=== PATIENT | male | born 1970 | race Two or more races ===

== ENCOUNTER 2024-07-29 00:20 | Inpatient (IN) | payer OTHER ==
[~2024-07-29] VITALS: Ht 170.2 cm; Wt 152.0 kg
--- NOTE | 2024-07-29 00:37 | ED.PDOC ---
General HPI Comments 54-year-old male who came to ER for flank pains. Patient denies any medical problems. States for the past week he has intermittent episodes of left flank pains, back pain, and suprapubic pain associated with on and off fever, nausea and dysuria. The patient was seen by his primary care provider, and started on antibiotics. However worsening of left flank pains the past 2 days prompted patient to come to the ER. Chief Complaint: Flank pain Time Seen by MD: 00:36 Reviewed notes: Nurses Notes Information Source: Patient Mode of Arrival: Ambulatory Severity: Moderate Inability to void: Mild Timing: Days Duration: Intermittent Has not urinated for: Minutes Prehospital treatment: None Onset: Spontaneous Symptoms: Dysuria History of: UTI Location: (L)Flank associated signs and symptoms: Fever, Abdominal Pain, Nausea, Flank Pain, Back Pain Past Medical History PAST MEDICAL HISTORY: Denies Surgical History: Denies all surgeries Family History Family History: Reviewed,noncontributory to illness Social History Smoker: Non-Smoker Alcohol: Denies ETOH Use Drugs: Denies Drug Use Lives In: Home Constitutional: reports: fever; denies: chills, diaphoresis, fatigue, malaise, sweats, weakness, others EENTM: denies: blurred vision, double vision, ear bleeding, ear discharge, ear drainage, ear pain, ear ringing, eye pain, eye redness, hearing loss, mouth pain, mouth swelling, nasal discharge, nose bleeding, nose congestion, nose pain, photophobia, tearing, throat pain, throat swelling, voice changes, others Respiratory: denies: cough, hemoptysis, orthopnea, SOB at rest, shortness of breath, SOB with excertion, stridor, wheezing, others Cardiovascular: denies: chest pain, dizzy spells, diaphoresis, Dyspnea on exertion, edema, irregular heart beat, left arm pain, lightheadedness, palpitations, PND, syncope, others Gastrointestinal: reports: abdominal pain; denies: abdomen distended, blood streaked bowels, constipated, diarrhea, dysphagia, difficulty swallowing, hematemesis, melena, nausea, poor appetite, poor fluid intake, rectal bleeding, rectal pain, vomiting, others Genitourinary: reports: burning, dysuria, flank pain; denies: frequency, hematuria, incontinence, penile discharge, penile sore, pain, testicle pain, testicle swelling, urgency, others Neurological: denies: dizziness, fainting, headache, left sided numbness, left sided weakness, numbness, paresthesia, pre-existing deficit, right sided numbness, right sided weakness, seizure, speech problems, tingling, tremors, weakness, others Musculoskeletal: reports: back pain; denies: gout, joint pain, joint swelling, muscle pain, muscle stiffness, neck pain, others Integumetry: denies: bruises, change in color, change in hair/nails, dryness, laceration, lesions, lumps, rash, wounds, others Allergic/Immunocompromised: denies: Difficulty Healing, Frequent Infections, Hives, Itching, others Hematologic/Lymphatic: denies: anemia, blood clots, easy bleeding, easy bruising, swollen glands, others Endocrine: denies: excessive hunger, excessive sweating, excessive thirst, excessive urination, flushing, intolerance to cold, intolerance to heat, unexplained weight gain, unexplained weight loss, others Psychiatric: denies: anxiety, bipolar disorder, depression, hopeless, panic disorder, schizophrenia, sleepless, suicidal, others Physical Exam General Appearance: No Apparent Distress, Normal HEENT: Normal ENT Inspection, Pharynx Normal, TMs Normal Neck: Full Range of Motion, Non-Tender, Normal, Normal Inspection Respiratory: Chest Non-Tender, Lungs Clear, No Accessory Muscle Use, No Respiratory Distress, Normal Breath Sounds Cardiovascular: No Edema, No JVD, No Murmur, No Gallop, Normal Peripheral Pulses, Regular Rate/Rhythm Breast Exam: Deferred Gastrointestinal: No Organomegaly, Non Tender, No Pulsatile Mass, Normal Bowel Sounds, Soft Genitalia: Deferred Pelvic: Deferred Rectal: Deferred Extremities: No calf tenderness, Normal capillary refill, Normal inspection, Normal range of motion, Non-tender, No pedal edema Musculoskeletal : Apperance: Normal Neurologic: Alert, supervisor contact lens II-XII nml as Tested, No Motor Deficits, Normal Affect, Normal Mood, No Sensory Deficits Cerebellar Function: Normal Reflexes: Normal Skin: Dry, Normal Color, Warm Lymphatic: No Adenopathy Was a procedure done? Was a procedure done?: No Differential Diagnosis Kidney stone (Female): N/A Kidney stone (Male): Pyelonephritis, Renal failure, Strain, Urinary obstruction, Urolithiasis, Urinary tract infection Urinary Problem (Male): Urethritis, Urinary Retention, Urolithiasis, UTI X-Ray, Labs, Meds, VS Vital Signs Date Time Temp Pulse Resp B/P (MAP) Pulse Ox O2 Delivery O2 Flow Rate FiO2 07/29/24 01:10 Room Air* 0 21 07/29/24 01:10 97.7 118 20 123/77 (92) 95 97.7 07/29/24 00:34 99.5 116 20 108/70 (83) 95 Lab Test 07/29/24 01:35 07/29/24 01:12 07/29/24 00:42 Range/Units White Blood Count 21.8 H 4.4-10.8 10^3/uL Red Blood Count 5.28 4.5-5.90 10^6/uL Hemoglobin 16.5 13.5-17.5 g/dL Hematocrit 48.3 41.0-53.0 % Mean Corpuscular Volume 91.5 80.0-100.0 fL Mean Corpuscular Hemoglobin 31.2 28.0-32.0 pg Mean Corpuscular Hemoglobin Concent 34.1 32.0-36.0 g/dL Red Cell Distribution Width 13.6 11.8-14.3 % Platelet Count 154 140-450 10^3/uL Mean Platelet Volume 9.2 6.9-10.8 fL Neutrophils (%) (Auto) 88.6 H 37.0-80.0 % Lymphocytes (%) (Auto) 3.7 L 10.0-50.0 % Monocytes (%) (Auto) 7.5 0.0-12.0 % Eosinophils (%) (Auto) 0.0 0.0-7.0 % Basophils (%) (Auto) 0.2 0.0-2.0 % Neutrophils # (Auto) 19.3 H 1.6-8.6 10 ^3/uL Lymphocytes # (Auto) 0.8 0.4-5.4 10 ^3/uL Monocytes # (Auto) 1.6 H 0-1.3 10 ^3/uL Eosinophils # (Auto) 0 0-0.8 10 ^3/uL Basophils # (Auto) 0.1 0-0.2 10 ^3/uL Nucleated Red Blood Cells 0.1 % Urine Color Light-orange Yellow Urine Clarity Clear Clear Urine pH 6.0 5.0-9.0 Urine Specific [place] 1.014 1.001-1.035 Urine Protein 1+ H Negative Urine Ketones Negative Negative Urine Blood 1+ H Negative /uL Urine Nitrite Negative Negative Urine Bilirubin Negative Negative Urine Urobilinogen Normal Negative mg/dL Urine Leukocyte Esterase 1+ Negative /uL Urine RBC 9 0 - 3 /hpf Urine WBC 24 0 - 3 /hpf Urine Squamous Epithelial Cells Few <5 /hpf Urine Transitional Epithelial Cells Few <2 /hpf Urine Bacteria Few H None Seen /hpf Urine Mucus Few None Seen Urine Glucose Normal Normal mg/dL Sodium Level 136 136-145 mmol/L Potassium Level 3.6 3.5-5.1 mmol/L Chloride Level 103 98-107 mmol/L Carbon Dioxide Level 25 20-31 mmol/L Anion Gap 8 5-15 Blood Urea Nitrogen 8 L 9-23 mg/dL Creatinine 0.84 0.700-1.30 mg/dL Glomerular Filtration Rate Calc 104 >90 mL/min BUN/Creatinine Ratio 9.5 L 10.0-20.0 Serum Glucose 114 H 74-106 mg/dL Calcium Level 9.2 8.7-10.4 mg/dL Total Bilirubin 3.2 H 0.2-1.0 mg/dL Aspartate Amino Transferase (AST) 27 13-40 U/L Alanine Aminotransferase (ALT) 44 H 7-40 U/L Alkaline Phosphatase 67 46-116 U/L Total Protein 7.2 5.7-8.2 g/dL Albumin 4.2 3.2-4.8 g/dL Lipase 26 12-53 U/L Current Medications Medications (Trade) Dose Ordered Sig/Liliam Route Start Time Stop Time Status Last Admin Acetaminophen/ Hydrocodone Bitart ([place] 10/325MG Tab) 1 tab ONCE ONCE PO 07/29/24 00:45 07/29/24 00:46 DC 07/29/24 01:08 Time of 1ST Reevaluation: 00:34 Reevaluation 1ST: Unchanged Time of 2ND Reevaluation: 02:26 Reevaluation 2ND: Unchanged (CT and labs suggest ureteral stone with obstruction and UTI, will admit for IV antibiotics and Urology consult) Patient Education/Counseling: Diagnosis, Treatment Family Education/Counseling: No Family Present Departure 1 Departure Time of Disposition: 02:26 Impression: Primary Impression: Ureteral stone with hydronephrosis Additional Impression: UTI (urinary tract infection) Disposition: 09 ADMITTED INPATIENT Admit to: Med Surg Condition: Guarded Critical Care Note Critical Care Time?: No Stability Stability form required: No Heart Score Heart Score: Heart Score Response (Comments) Value History N/A 0 EKG N/A 0 Age N/A 0 Risk Factors N/A 0 Troponin N/A 0 Total 0 I personally scribed for LEXY HARRIS MD ([email or web address]) on 07/29/24 at 00:37. Electronically submitted by Emilio Melendez ([email or web address]). LEXY HARRIS MD Jul 29, 2024 00:37
[2024-07-29 01:08] LABS: Alanine Aminotransferase 44 U/L (7-40); Alkaline Phosphatase 67 U/L (46-116)
[2024-07-29] MEDS: HYDROcodone-ACET 10/325MG TAB PO ONE (01:08)
[2024-07-29 01:09] LABS: Albumin 4.2 g/dL (3.2-4.8); Anion Gap 8 (5-15); Aspartate Aminotransferase 27 U/L (13-40); BUN/Creatinine Ratio 9.5 (10.0-20.0); Bilirubin, Total 3.2 mg/dL (0.2-1.0); Blood Urea Nitrogen 8 mg/dL (9-23); Calcium 9.2 mg/dL (8.7-10.4); Carbon Dioxide 25 mmol/L (20-31); Chloride 103 mmol/L (98-107); Glucose 114 mg/dL (74-106); Lipase 26 U/L (12-53); Potassium 3.6 mmol/L (3.5-5.1); Sodium 136 mmol/L (136-145); Total Protein 7.2 g/dL (5.7-8.2)
[2024-07-29 01:39] LABS: Urine Bacteria FEW /hpf (None Seen); Urine Blood 1+ /uL (Negative); Urine Clarity Clear (Clear); Urine Color Light-Orange (Yellow); Urine Mucus FEW (None Seen); Urine Protein, UAD 1+ (Negative); Urine Specific Gravity 1.014 (1.001-1.035); Urine Urobilinogen Normal (Negative); Urine WBC 24 /hpf (0 - 3)
[2024-07-29 01:44] LABS: Basophils # (auto) 0.1 10 ^3/uL (0-0.2); Basophils % (auto) 0.2 % (0.0-2.0); Eosinophils # (auto) 0 10 ^3/uL (0-0.8); Hematocrit 48.3 % (41.0-53.0); Hemoglobin 16.5 g/dL (13.5-17.5); Lymphocytes # (auto) 0.8 10 ^3/uL (0.4-5.4); Lymphocytes % (auto) 3.7 % (10.0-50.0); Mean Corpuscular Hemoglobin 31.2 pg (28.0-32.0); Mean Corpuscular Hgb Conc. 34.1 g/dL (32.0-36.0); Mean Corpuscular Volume 91.5 fL (80.0-100.0); Monocytes # (auto) 1.6 10 ^3/uL (0-1.3); Monocytes % (auto) 7.5 % (0.0-12.0); Neutrophils # (auto) 19.3 10 ^3/uL (1.6-8.6); Neutrophils % (auto) 88.6 % (37.0-80.0); Nucleated Red Blood Cells % 0.1 %; Platelet Count (auto) 154 10^3/uL (140-450); Red Blood Cells 5.28 10^6/uL (4.5-5.90); Red Cell Distribution Width 13.6 % (11.8-14.3); White Blood Cell 21.8 10^3/uL (4.4-10.8)
--- NOTE | 2024-07-29 01:57 | DVH ---
Exam: CT CT AB PEL WO CON-NO ORAL OR IV History: left flank pain Comparison Study: None available at time of dictation. Technique: Multidetector spiral CT of the abdomen was performed from lung bases to pubic symphysis. Imaging was performed without IV contrast. Axial, coronal and sagittal multiplanar reformats were ob tained from the axial data set by the technologist. Radiation Dose : 1. Abdomen/Pelvis: CTDIvol 26 mGy, DLP 1924 mGy*cm. Findings: Evaluation of solid organs is limited due to lack of intravenous contrast use. Lung Bases: No acute or significant lung base finding. Normal heart size. No pleural or pericardial effusion. Liver: The liver is normal in size. No focal lesions. Gallbladder and Biliary Tree: Unremarkable Spleen: Unremarkable Pancreas: The pancreas is grossly normal in appearance. Adrenal Glands: Unremarkable Kidneys: Mild left perinephric fat stranding with a 4 mm stone in the mid left ureter. Bladder: Nondistended urinary bladder demonstrates diffuse wall thickening. Bowel: The stomach is grossly normal in appearance. Small bowel and colon are normal in caliber and d istribution. Normal appendix is visualized in the right lower quadrant without findings of appendici tis. Ascites: Absent Lymphadenopathy: No mesenteric, retroperitoneal or periportal lymphadenopathy. Abdominal Wall and Mesentery: Unremarkable. Vasculature: The visualized abdominal aorta is normal in size and caliber. Evaluation of abdominal a nd pelvic vessels is limited due to lack of intravenous contrast. Pelvic Organs: Unremarkable Musculoskeletal: No aggressive focal bony lesions, acute fractures or dislocation. IMPRESSION: Mild left perinephric fat stranding with a 4 mm stone in the mid left ureter. Findings are concernin g for possible developing infectious process of the left kidney suggest pyelonephritis. Nondistended urinary bladder demonstrates diffuse wall thickening. Correlate for acute cystitis.
[2024-07-29] MEDS: cefTRIAXone 2GM/50ML D5W 50 ML IV ONE (02:59)
[2024-07-29] MEDS: SODIUM CHLORIDE 0.9% 1,000 ML IVB ONE (02:59)
[2024-07-29 04:30] VITALS: PULSE 96; O2SAT 95
[2024-07-29] MEDS: SODIUM CHLORIDE 0.9% 1,000 ML IV ONE (06:15)
[2024-07-29] MEDS ORDERED: MAALOX PLUS or MAALOX 30 ML PO PRN (11:00)
[2024-07-29] MEDS ORDERED: ONDANSETRON HCL 4 MG/2 ML VIAL IV PRN (11:00)
[2024-07-29] MEDS ORDERED: TEMAZEPAM 15 MG CAP PO PRN (11:00)
[2024-07-29] MEDS ORDERED: DOCUSATE SOD 100 MG CAP PO PRN (11:00)
[2024-07-29] MEDS ORDERED: HYDROcodone-ACET 5/325MG TAB PO PRN (11:00)
[2024-07-29] MEDS ORDERED: DEXTROSE (50%) 50ML SYRG IV PRN (11:00)
[2024-07-29] MEDS ORDERED: LORazepam 0.5 MG TAB PO PRN (11:00)
[2024-07-29] MEDS ORDERED: MORPHINE SULFATE INJ 2 MG/ml SYRG IV PRN (11:00)
--- NOTE | 2024-07-29 11:36 | DVHHP2 ---
History of Present Illness Reason for Visit: flank pain History of Present Illness %4 yo with flank pain dysuria and elevated white count evaluated in the ed for acute pain shown to have stones and acute signs of infection requiring inpatient treatment and management Cardiovascular: HTN Renal/: Acute renal failure Endocrine: Diabetes Review of Systems Constitutional: Yes: Fever; No: Chills, Sweats, Weakness, Malaise, Other Eyes: No: Pain, Vision change, Conjunctivae inflammation, Eyelid inflammation, Other, Redness ENT: No: Ear pain, Ear discharge, Nose pain, Nose discharge, Nose congestion, Mouth pain, Mouth swelling, Throat pain, Throat swelling, Other Respiratory: No: Cough, Dry, Shortness of breath, SOB with excertion, Wheezing, Hemoptysis, Pleuritic Pain, Sputum, Wheezing, Other Cardiovascular: No: Chest Pain, Palpitations, Orthopnea, Paroxysmal Noc. Dyspnea, Edema, Lt Headedness, Other Gastrointestinal: Nausea, Abdominal Pain; No: Vomiting, Diarrhea, Constipation, Melena, Hematochezia, Other Genitourinary: Dysuria, Frequency; No Incontinence, No Hematuria, No Retention, No Other Musculoskeletal: No: other, neck pain, shoulder pain, arm pain, back pain, hand pain, leg pain, foot pain Skin: No: Rash, Lesions, Jaundice, Bruising, Other Neurological: Weakness; No: Numbness, Incoordination, Change in speech, Confusion, Seizures, Other Exam Vital Signs Vital Signs Date Time Temp Pulse Resp B/P (MAP) Pulse Ox O2 Delivery O2 Flow Rate FiO2 07/29/24 10:51 100.0 106 14 111/66 (81) 94 100.0 07/29/24 08:24 Nasal Cannula* 2 28 General Appearance: Alert, Oriented X3, moderate distress HEENT: Atraumatic, PERRLA Respiratory: Clear to auscultation, Normal air movement Cardiovascular: Regular rate, Normal S1, Normal S2 Abdominal: Normal bowel sounds, Soft, No tenderness Extremities: No clubbing, No cyanosis Skin: No rashes, No breakdown Neuro: Normal gait, Normal speech Psych/Mental Status: Mood NL Labs/Xrays Labs Test 07/29/24 02:40 07/29/24 01:35 07/29/24 01:12 07/29/24 00:42 Range/Units Lactic Acid Level 1.3 0.4-2.0 mmol/L White Blood Count 21.8 H 4.4-10.8 10^3/uL Red Blood Count 5.28 4.5-5.90 10^6/uL Hemoglobin 16.5 13.5-17.5 g/dL Hematocrit 48.3 41.0-53.0 % Mean Corpuscular Volume 91.5 80.0-100.0 fL Mean Corpuscular Hemoglobin 31.2 28.0-32.0 pg Mean Corpuscular Hemoglobin Concent 34.1 32.0-36.0 g/dL Red Cell Distribution Width 13.6 11.8-14.3 % Platelet Count 154 140-450 10^3/uL Mean Platelet Volume 9.2 6.9-10.8 fL Neutrophils (%) (Auto) 88.6 H 37.0-80.0 % Lymphocytes (%) (Auto) 3.7 L 10.0-50.0 % Monocytes (%) (Auto) 7.5 0.0-12.0 % Eosinophils (%) (Auto) 0.0 0.0-7.0 % Basophils (%) (Auto) 0.2 0.0-2.0 % Neutrophils # (Auto) 19.3 H 1.6-8.6 10 ^3/uL Lymphocytes # (Auto) 0.8 0.4-5.4 10 ^3/uL Monocytes # (Auto) 1.6 H 0-1.3 10 ^3/uL Eosinophils # (Auto) 0 0-0.8 10 ^3/uL Basophils # (Auto) 0.1 0-0.2 10 ^3/uL Nucleated Red Blood Cells 0.1 % Urine Color Light-orange Yellow Urine Clarity Clear Clear Urine pH 6.0 5.0-9.0 Urine Specific [place] 1.014 1.001-1.035 Urine Protein 1+ H Negative Urine Ketones Negative Negative Urine Blood 1+ H Negative /uL Urine Nitrite Negative Negative Urine Bilirubin Negative Negative Urine Urobilinogen Normal Negative mg/dL Urine Leukocyte Esterase 1+ Negative /uL Urine RBC 9 0 - 3 /hpf Urine WBC 24 0 - 3 /hpf Urine Squamous Epithelial Cells Few <5 /hpf Urine Transitional Epithelial Cells Few <2 /hpf Urine Bacteria Few H None Seen /hpf Urine Mucus Few None Seen Urine Glucose Normal Normal mg/dL Sodium Level 136 136-145 mmol/L Potassium Level 3.6 3.5-5.1 mmol/L Chloride Level 103 98-107 mmol/L Carbon Dioxide Level 25 20-31 mmol/L Anion Gap 8 5-15 Blood Urea Nitrogen 8 L 9-23 mg/dL Creatinine 0.84 0.700-1.30 mg/dL Glomerular Filtration Rate Calc 104 >90 mL/min BUN/Creatinine Ratio 9.5 L 10.0-20.0 Serum Glucose 114 H 74-106 mg/dL Calcium Level 9.2 8.7-10.4 mg/dL Total Bilirubin 3.2 H 0.2-1.0 mg/dL Aspartate Amino Transferase (AST) 27 13-40 U/L Alanine Aminotransferase (ALT) 44 H 7-40 U/L Alkaline Phosphatase 67 46-116 U/L Total Protein 7.2 5.7-8.2 g/dL Albumin 4.2 3.2-4.8 g/dL Lipase 26 12-53 U/L Assessment/Plan Assessment/Plan Admit med/Surg Pylonephritis Nonobstructive Stones 4 mm consult for possible lithotripsy Elevated WBC> 20 acute infection noted IV Hydration IV ABX prn pain management Tamsulosin and Finasteride DM uncontrolled insulin sliding scale inpatient morbidly obese BMI>57 Plan discussed with: Patient My Orders Orders - RAVI NELSON MD Procedure Category Date Status Time Ceftriaxone 1gm/50ml PHA 07/30/24 Logged D5w (Rocephin) 10:00 * Gu Consult CONS 07/29/24 Transmitted 10:56 Sodium Chloride 0.9% PHA 07/29/24 Logged 11:00 Tamsulosin PHA 07/29/24 Logged Hydrochloride (Flomax) 11:00 Finasteride Tablet PHA 07/29/24 Logged (Proscar Tablet) 11:00 Glucose Blood PHA 07/29/24 Logged (Accu-Chek Comfort 12:00 Insulin R (Human) PHA 07/29/24 Logged (Insulin R) 12:00 Dextrose 50% Syringe PHA 07/29/24 Logged 11:00 Admit ADMIT 07/29/24 Transmitted 10:56 Code Status CODE 07/29/24 Transmitted 10:56 Vital Signs TODD 07/29/24 In Process 10:56 Review Orders With TODD 07/29/24 In Process Adm. 10:56 Regular Diet DIET 07/29/24 Transmitted Lunch Lorazepam Tablet PHA 07/29/24 Logged (Ativan Tablet) 11:00 Alum & Mag PHA 07/29/24 Logged Hydrox-Simethicone 11:00 Docusate Sodium PHA 07/29/24 Logged Capsule (Colace 11:00 Acetaminophen Tablet PHA 07/29/24 Logged (Tylenol Tablet) 11:00 Temazepam (Restoril) PHA 07/29/24 Logged 11:00 Notify Md Of Changes TODD 07/29/24 In Process From Base 10:56 Advance Directive TODD 07/29/24 In Process 10:56 Basic Metabolic Panel LAB 07/30/24 Verified 04:00 Complete Blood Count LAB 07/30/24 Verified 04:00 Urine Bacterial EILEEN 07/29/24 In Process Culture 10:56 Patient Condition ORDERS 07/29/24 Transmitted 10:56 Allergies TODD 07/29/24 In Process 10:56 Hydrocodone-Acet PHA 07/29/24 Logged 5/325mg Tab (Early 11:00 Ondansetron Hcl PHA 07/29/24 Logged (Zofran) 11:00 Morphine Sulfate PHA 07/29/24 Logged Injection 11:00 Notify Md Of Changes TODD 07/29/24 In Process From Base 10:56 Oxygen By Nasal RT 07/29/24 Transmitted Cannula 10:56 Problem List: (1) Diabetes mellitus type 2 with complications, uncontrolled (2) Morbid obesity with BMI of 50.0-59.9, adult (3) UTI (urinary tract infection) (4) Ureteral stone with hydronephrosis Date of Service: Jul 29, 2024 Billing Provider: RAVI NELSON MD Common Visit Codes: 69234-[id number] INP/OBS CARE (HIGH) RAVI NELSON MD Jul 29, 2024 11:36
[2024-07-29] MEDS: InsuLIN REG 1unit/0.01ml Soln (100units/ml) SC SCH (12:00)
[2024-07-29] MEDS: TAMSULOSIN HYDROCHLORIDE 0.4 MG CAP PO SCH (12:13)
[2024-07-29] MEDS: ACETAMINOPHEN 325 MG TAB PO PRN (12:13)
[2024-07-29] MEDS: FINASTERIDE 5 MG TAB PO SCH (12:14)
[2024-07-29] MEDS: ACCU-CHEK COMFORT CURVE STRIP VI SCH (12:14)
[2024-07-29] MEDS: SODIUM CHLORIDE 0.9% 1,000 ML IV SCH (12:15)
--- NOTE | 2024-07-29 13:45 | DVHINCON2 ---
Date of service: Jul 29, 2024 Referring Physician Tulio Reason for Consultation ureteral stone, pyelo History of Present Illness History Source: Patient, RN Notes, MD Notes, Old Records Exam Limitations: No limitations HPI 54 yo male with left flank pain and dysuria. He has been having fever as well. CT shows a 4 mm left midureteral stone. minimal hydro. Review of Systems Constitutional: Fever Genitourinary: Dysuria, Frequency, Pain H&P Exam Vital Signs Vital Signs Date Time Temp Pulse Resp B/P (MAP) Pulse Ox O2 Delivery O2 Flow Rate FiO2 07/29/24 12:13 100.0 07/29/24 10:51 106 14 111/66 (81) 94 07/29/24 08:24 Nasal Cannula* 2 28 General Appeara: Well developed, Well nourished, Normal Appearance Neuro/Mental St: Alert, Oriented Appearance: Appropriate appearance, Appropriate insight Eye contact/ Speech: Cooperative, Good eye contact, Normal speech Skin Exam: Normal inspection, Normal color, Warm/dry Labs/Xrays Labs Test 07/29/24 02:40 07/29/24 01:35 07/29/24 01:12 07/29/24 00:42 Range/Units Lactic Acid Level 1.3 0.4-2.0 mmol/L White Blood Count 21.8 H 4.4-10.8 10^3/uL Red Blood Count 5.28 4.5-5.90 10^6/uL Hemoglobin 16.5 13.5-17.5 g/dL Hematocrit 48.3 41.0-53.0 % Mean Corpuscular Volume 91.5 80.0-100.0 fL Mean Corpuscular Hemoglobin 31.2 28.0-32.0 pg Mean Corpuscular Hemoglobin Concent 34.1 32.0-36.0 g/dL Red Cell Distribution Width 13.6 11.8-14.3 % Platelet Count 154 140-450 10^3/uL Mean Platelet Volume 9.2 6.9-10.8 fL Neutrophils (%) (Auto) 88.6 H 37.0-80.0 % Lymphocytes (%) (Auto) 3.7 L 10.0-50.0 % Monocytes (%) (Auto) 7.5 0.0-12.0 % Eosinophils (%) (Auto) 0.0 0.0-7.0 % Basophils (%) (Auto) 0.2 0.0-2.0 % Neutrophils # (Auto) 19.3 H 1.6-8.6 10 ^3/uL Lymphocytes # (Auto) 0.8 0.4-5.4 10 ^3/uL Monocytes # (Auto) 1.6 H 0-1.3 10 ^3/uL Eosinophils # (Auto) 0 0-0.8 10 ^3/uL Basophils # (Auto) 0.1 0-0.2 10 ^3/uL Nucleated Red Blood Cells 0.1 % Urine Color Light-orange Yellow Urine Clarity Clear Clear Urine pH 6.0 5.0-9.0 Urine Specific [place] 1.014 1.001-1.035 Urine Protein 1+ H Negative Urine Ketones Negative Negative Urine Blood 1+ H Negative /uL Urine Nitrite Negative Negative Urine Bilirubin Negative Negative Urine Urobilinogen Normal Negative mg/dL Urine Leukocyte Esterase 1+ Negative /uL Urine RBC 9 0 - 3 /hpf Urine WBC 24 0 - 3 /hpf Urine Squamous Epithelial Cells Few <5 /hpf Urine Transitional Epithelial Cells Few <2 /hpf Urine Bacteria Few H None Seen /hpf Urine Mucus Few None Seen Urine Glucose Normal Normal mg/dL Sodium Level 136 136-145 mmol/L Potassium Level 3.6 3.5-5.1 mmol/L Chloride Level 103 98-107 mmol/L Carbon Dioxide Level 25 20-31 mmol/L Anion Gap 8 5-15 Blood Urea Nitrogen 8 L 9-23 mg/dL Creatinine 0.84 0.700-1.30 mg/dL Glomerular Filtration Rate Calc 104 >90 mL/min BUN/Creatinine Ratio 9.5 L 10.0-20.0 Serum Glucose 114 H 74-106 mg/dL Calcium Level 9.2 8.7-10.4 mg/dL Total Bilirubin 3.2 H 0.2-1.0 mg/dL Aspartate Amino Transferase (AST) 27 13-40 U/L Alanine Aminotransferase (ALT) 44 H 7-40 U/L Alkaline Phosphatase 67 46-116 U/L Total Protein 7.2 5.7-8.2 g/dL Albumin 4.2 3.2-4.8 g/dL Lipase 26 12-53 U/L Assessment/Plan Problem List: (1) UTI (urinary tract infection) (2) Ureteral stone with hydronephrosis Plan expulsive measures aggressive fluids urine culture pain meds prn lithotripsy TBA if fails trial of passage after resolution of UTI if hydro worsens, creatinine worsens or pain is intractable we will ask IR to place nephrostomy tomorrow Plan discussed with: Other DOMINIQUE STEVENS NP Jul 29, 2024 13:45
[2024-07-29 17:00] VITALS: BP 109/62; PULSE 108; RESP 16; TEMP 99.1; O2SAT 92
[2024-07-29 17:49] VITALS: BP 109/62; PULSE 108; RESP 16; TEMP 99.1; O2SAT 92
[2024-07-29] MEDS ORDERED: APIX5TAB PO (18:12)
[2024-07-29] MEDS ORDERED: FERR-7 PO (18:12)
[2024-07-29] MEDS ORDERED: SERT-160 PO (18:12)
[2024-07-29] MEDS ORDERED: OMEP20TA PO (18:12)
[2024-07-29] MEDS ORDERED: OXY20CRT PO (18:12)
[2024-07-29] MEDS ORDERED: PREG50CA PO (18:12)
[2024-07-29] MEDS ORDERED: CETI10TA2 PO (18:12)
[2024-07-29] MEDS ORDERED: TRAZ-228 PO (18:12)
[2024-07-29] MEDS ORDERED: DIGO0.12 PO (18:12)
[2024-07-29] MEDS ORDERED: CARV6.2551 PO (18:12)
[2024-07-29] MEDS ORDERED: ASPI-543 PO (18:12)
[2024-07-29] MEDS ORDERED: BUSP10TA90 PO (18:12)
[2024-07-29] MEDS ORDERED: LISI2.5T47 PO (18:12)
[2024-07-29] MEDS ORDERED: ALPR0.25 PO (18:12)
[2024-07-29] MEDS ORDERED: PROP80TA2 PO (18:12)
[2024-07-29] MEDS ORDERED: FERR1TAB36 PO (18:12)
[2024-07-29] MEDS ORDERED: DOCU-94 PO (18:12)
[2024-07-29] MEDS ORDERED: ATOR20TA PO (18:12)
[2024-07-29] MEDS ORDERED: TIZA4CAP PO (18:12)
[2024-07-29] MEDS ORDERED: MONT-8 OR (18:12)
[2024-07-29] MEDS ORDERED: CHOL20004 PO (18:12)
[2024-07-29 20:00] VITALS: PULSE 112; RESP 17; O2SAT 92
[2024-07-29 21:00] VITALS: BP 99/50; PULSE 112; RESP 17; TEMP 100.6; O2SAT 92
[2024-07-30] VITALS (8 sets, daily range): BP systolic 102–128; BP diastolic 53–80; PULSE 78–104; RESP 16–19; TEMP 97.8–100.6; O2SAT 94–95
[2024-07-30] MEDS: ACETAMINOPHEN 325 MG TAB PO PRN (01:55)
[2024-07-30] MEDS: cefTRIAXone 1GM/50ML D5W 50 ML IV SCH (11:39)
--- NOTE | 2024-07-30 11:42 | DVHPN2 ---
Subjective Patient seems him at bedside. No complaint today. Reviewed: Care Plan, H&P, Labs, Medications, Previous Orders, Radiology Changes from previous H/P or p: No Changes Eyes: No Pain, No Vision change, No Conjunctivae inflammation, No Eyelid inflammation, No Other, No Redness ENT: No Ear pain, No Ear discharge, No Nose pain, No Nose discharge, No Nose congestion, No Mouth pain, No Mouth swelling, No Throat pain, No Throat swelling, No Other Cardiovascular: No Chest Pain, No Palpitations, No Orthopnea, No Paroxysmal Noc. Dyspnea, No Edema, No Lt Headedness, No Other Respiratory: No Cough, No Dry, No Shortness of breath, No SOB with excertion, No Wheezing, No Hemoptysis, No Pleuritic Pain, No Sputum, No Other Gastrointestinal: Nausea; No Vomiting; Abdominal Pain; No Diarrhea, No Constipation, No Melena, No Hematochezia, No Other Genitourinary: Dysuria, Frequency; No Incontinence, No Hematuria, No Retention, No Other Musculoskeletal: No other, No neck pain, No shoulder pain, No arm pain, No back pain, No hand pain, No leg pain, No foot pain Skin: No Rash, No Lesions, No Jaundice, No Bruising, No Other Objective Vitals Vital Signs Date Time Temp Pulse Resp B/P (MAP) Pulse Ox O2 Delivery O2 Flow Rate FiO2 07/30/24 09:24 97.9 93 17 120/75 (90) 95 97.9 07/30/24 08:00 Nasal Cannula* 2 28 Intake/Output Intake and Output 07/30/24 07:00 Intake Total 3730 ml Output Total 250 ml Balance 3480 ml Intake Oral 800 ml IV Total 2930 ml Output Urine Total 250 ml General Appearance: Alert, No acute distress HEENT: Atraumatic, PERRLA, EOMI, Mucous membr. moist/pink Neck: Supple Lungs: Clear to auscultation, Normal air movement Cardiovascular: Regular rate, Normal S1, Normal S2, No murmurs, Gallops, Rubs Abdomen: Normal bowel sounds, Soft, No tenderness Neuro: Cranial nerves 3-12 NL Psych/Mental Status: Mental status NL Medications Current Medications Medications Dose Ordered Sig/Liliam Route Start Time Stop Time Status Last Admin Dose Admin Ceftriaxone Sodium 50 ml @ 100 mls/hr DAILY IV 07/30/24 10:00 Sodium Chloride 1,000 ml @ 100 mls/hr Q10H IV 07/29/24 11:00 07/30/24 06:59 100 MLS/HR Tamsulosin HCl 0.8 mg DAILY PO 07/29/24 11:00 07/29/24 12:13 0.8 MG Finasteride 5 mg DAILY PO 07/29/24 11:00 07/29/24 12:14 5 MG Diagnostic Test (Pha) 1 strip IQ4HR 07/29/24 12:00 07/30/24 08:16 1 STRIP Insulin Human Regular IQ4HR SC 07/29/24 12:00 Dextrose 50 ml UD PRN IV 07/29/24 11:00 Lorazepam 0.5 mg Q6HP PRN PO 07/29/24 11:00 Al Hydrox/Mg Hydrox/Simethicone 30 ml Q6HP PRN PO 07/29/24 11:00 Docusate Sodium 100 mg BIDPRN PRN PO 07/29/24 11:00 Temazepam 15 mg QHSP PRN PO 07/29/24 11:00 Acetaminophen/ Hydrocodone Bitart 1 tab Q4HP PRN PO 07/29/24 11:00 Ondansetron HCl 4 mg Q4HP PRN IV 07/29/24 11:00 Morphine Sulfate 2 mg Q4HPRN PRN IV 07/29/24 11:00 Acetaminophen 650 mg Q6HP PRN PO 07/30/24 02:00 07/30/24 01:55 650 MG Laboratory Results Laboratory Tests 07/29/24 00:42 07/29/24 01:35 Urinalysis Test 07/29/24 01:12 Urine Color Light-orange (Yellow) Urine Clarity Clear (Clear) Urine pH 6.0 (5.0-9.0) Urine Specific [place] 1.014 (1.001-1.035) Urine Protein 1+ (Negative) H Urine Ketones Negative (Negative) Urine Blood 1+ /uL (Negative) H Urine Nitrite Negative (Negative) Urine Bilirubin Negative (Negative) Urine Urobilinogen Normal mg/dL (Negative) Urine Leukocyte Esterase 1+ /uL (Negative) Urine RBC 9 /hpf (0 - 3) Urine WBC 24 /hpf (0 - 3) Urine Squamous Epithelial Cells Few /hpf (<5) Urine Transitional Epithelial Cells Few /hpf (<2) Urine Bacteria Few /hpf (None Seen) H Urine Mucus Few (None Seen) Urine Glucose Normal mg/dL (Normal) Microbiology Microbiology Date/Time Source Procedure Growth Status 07/29/24 03:01 Blood Blood Culture - Preliminary NO GROWTH AFTER 24 HOURS OF INCUBATION. Resulted Labs and/or images reviewed: Labs reviewed by me Assessment/Plan Assessment/Plan Pyelonephritis Obstructive stone 4 mm mid left ureter Diabetes uncontrolled Morbid obesity Plan: Continuing current management. Continuing with IV antibiotic Rocephin. IV fluid. Sliding scale insulin. Waiting for urology to see the patient. Plan discussed with: Patient Date of Service: Jul 30, 2024 Billing Provider: DANN PEARSON MD Common Visit Codes: [id number] INP/OBS CARE(HIGH) DANN PEARSON MD Jul 30, 2024 11:42
[2024-07-31] VITALS (8 sets, daily range): BP systolic 101–122; BP diastolic 53–75; PULSE 66–93; RESP 16–19; TEMP 98–99.7; O2SAT 93–96
[2024-07-31 13:49] LABS: Hematocrit 47.8 % (41.0-53.0); Hemoglobin 16.3 g/dL (13.5-17.5); Mean Corpuscular Hemoglobin 30.9 pg (28.0-32.0); Mean Corpuscular Hgb Conc. 34.1 g/dL (32.0-36.0); Mean Corpuscular Volume 90.5 fL (80.0-100.0); Platelet Count (auto) 95 10^3/uL (140-450); Red Blood Cells 5.29 10^6/uL (4.5-5.90); Red Cell Distribution Width 13.1 % (11.8-14.3); White Blood Cell 12.5 10^3/uL (4.4-10.8)
[2024-07-31 13:59] LABS: Chloride 106 mmol/L (98-107); Potassium 3.5 mmol/L (3.5-5.1); Sodium 139 mmol/L (136-145)
[2024-07-31 14:00] LABS: Anion Gap 8 (5-15); Carbon Dioxide 25 mmol/L (20-31)
[2024-07-31 14:01] LABS: Calcium 8.7 mg/dL (8.7-10.4)
[2024-07-31 14:05] LABS: BUN/Creatinine Ratio 15.1 (10.0-20.0); Band Neutrophils % (manual) 0; Basophils % (manual) 0 (0.0-2.0); Blast Cells 0; Blood Urea Nitrogen 11 mg/dL (9-23); Glucose 116 mg/dL (74-106); Metamyelocytes % 0; Myelocytes % 0; Promyelocytes % 0; Reactive Lymphocytes 0
[2024-07-31 14:07] LABS: Eosinophils % (manual) 3 (0-7); Lymphocytes % (manual) 9 (10.0-50.0); Monocytes % (manual) 7 (0-12)
[2024-07-31 14:09] LABS: Platelet Estimate Decrea
[2024-08-01] VITALS (9 sets, daily range): BP systolic 96–142; BP diastolic 52–86; PULSE 70–89; RESP 16–20; TEMP 98.1–98.7; O2SAT 90–95
--- NOTE | 2024-08-01 13:13 | DVHPN2 ---
Reviewed: Care Plan, H&P, Labs, Medications, Previous Orders, Radiology Changes from previous H/P or p: No Changes Eyes: No Pain, No Vision change, No Conjunctivae inflammation, No Eyelid inflammation, No Other, No Redness ENT: No Ear pain, No Ear discharge, No Nose pain, No Nose discharge, No Nose congestion, No Mouth pain, No Mouth swelling, No Throat pain, No Throat swelling, No Other Cardiovascular: No Chest Pain, No Palpitations, No Orthopnea, No Paroxysmal Noc. Dyspnea, No Edema, No Lt Headedness, No Other Respiratory: No Cough, No Dry, No Shortness of breath, No SOB with excertion, No Wheezing, No Hemoptysis, No Pleuritic Pain, No Sputum, No Other Gastrointestinal: Nausea; No Vomiting; Abdominal Pain; No Diarrhea, No Constipation, No Melena, No Hematochezia, No Other Genitourinary: Dysuria, Frequency; No Incontinence, No Hematuria, No Retention, No Other Musculoskeletal: No other, No neck pain, No shoulder pain, No arm pain, No back pain, No hand pain, No leg pain, No foot pain Skin: No Rash, No Lesions, No Jaundice, No Bruising, No Other Objective Vitals Vital Signs Date Time Temp Pulse Resp B/P (MAP) Pulse Ox O2 Delivery O2 Flow Rate FiO2 08/01/24 09:00 98.2 79 16 96/54 (68) 94 98.2 08/01/24 08:00 Room Air* 0 21 Intake/Output Intake and Output 08/01/24 07:00 Intake Total 4480 ml Output Total 3550 ml Balance 930 ml Intake Oral 2450 ml IV Total 2030 ml Output Urine Total 3550 ml # Bowel Movements 1 Medications Current Medications Medications Dose Ordered Sig/Liliam Route Start Time Stop Time Status Last Admin Dose Admin Ceftriaxone Sodium 50 ml @ 100 mls/hr DAILY IV 07/30/24 10:00 08/01/24 09:22 100 MLS/HR Sodium Chloride 1,000 ml @ 100 mls/hr Q10H IV 07/29/24 11:00 08/01/24 09:25 100 MLS/HR Tamsulosin HCl 0.8 mg DAILY PO 07/29/24 11:00 08/01/24 09:22 0.8 MG Finasteride 5 mg DAILY PO 07/29/24 11:00 08/01/24 09:22 5 MG Diagnostic Test (Pha) 1 strip IQ4HR 07/29/24 12:00 08/01/24 12:00 1 STRIP Insulin Human Regular IQ4HR SC 07/29/24 12:00 Dextrose 50 ml UD PRN IV 07/29/24 11:00 Lorazepam 0.5 mg Q6HP PRN PO 07/29/24 11:00 Al Hydrox/Mg Hydrox/Simethicone 30 ml Q6HP PRN PO 07/29/24 11:00 Docusate Sodium 100 mg BIDPRN PRN PO 07/29/24 11:00 Temazepam 15 mg QHSP PRN PO 07/29/24 11:00 Acetaminophen/ Hydrocodone Bitart 1 tab Q4HP PRN PO 07/29/24 11:00 Ondansetron HCl 4 mg Q4HP PRN IV 07/29/24 11:00 Morphine Sulfate 2 mg Q4HPRN PRN IV 07/29/24 11:00 Acetaminophen 650 mg Q6HP PRN PO 07/30/24 02:00 07/30/24 16:31 650 MG Laboratory Results Laboratory Tests 07/31/24 13:27 Chemistry Test 07/31/24 13:27 Calcium Level 8.7 mg/dL (8.7-10.4) Urinalysis Test 07/29/24 01:12 Urine Color Light-orange (Yellow) Urine Clarity Clear (Clear) Urine pH 6.0 (5.0-9.0) Urine Specific [place] 1.014 (1.001-1.035) Urine Protein 1+ (Negative) H Urine Ketones Negative (Negative) Urine Blood 1+ /uL (Negative) H Urine Nitrite Negative (Negative) Urine Bilirubin Negative (Negative) Urine Urobilinogen Normal mg/dL (Negative) Urine Leukocyte Esterase 1+ /uL (Negative) Urine RBC 9 /hpf (0 - 3) Urine WBC 24 /hpf (0 - 3) Urine Squamous Epithelial Cells Few /hpf (<5) Urine Transitional Epithelial Cells Few /hpf (<2) Urine Bacteria Few /hpf (None Seen) H Urine Mucus Few (None Seen) Urine Glucose Normal mg/dL (Normal) Microbiology Microbiology Date/Time Source Procedure Growth Status 07/29/24 03:01 Blood Blood Culture - Preliminary NO GROWTH AFTER 72 HOURS OF INCUBATION. Resulted 07/29/24 01:12 Voided Urine Urine Culture - Preliminary Resulted Labs and/or images reviewed: Labs reviewed by me, Image(s) reviewed by me Assessment/Plan Assessment/Plan Sepsis secondary to acute urinary tract infection: Blood cultures urine cultures Acute urinary tract infection with a pyelonephritis: Rocephin 4 mm left mid ureteral stone with hydronephrosis: Urology consult appreciated. Uncontrolled diabetes: Insulin sliding scale Time spent 40 minutes Patient is full code Plan discussed with: Patient Date of Service: Aug 01, 2024 Billing Provider: LEONOR DACOSTA MD Common Visit Codes: [id number] INP/OBS CARE(HIGH) LEONOR DACOSTA MD Aug 01, 2024 13:13
[2024-08-02] VITALS (7 sets, daily range): BP systolic 119–136; BP diastolic 69–80; PULSE 65–85; RESP 17–20; TEMP 97.7–99.3; O2SAT 92–94
--- NOTE | 2024-08-02 08:35 | DVHPN2 ---
Reviewed: Care Plan, H&P, Labs, Medications, Previous Orders, Radiology Changes from previous H/P or p: No Changes Eyes: No Pain, No Vision change, No Conjunctivae inflammation, No Eyelid inflammation, No Other, No Redness ENT: No Ear pain, No Ear discharge, No Nose pain, No Nose discharge, No Nose congestion, No Mouth pain, No Mouth swelling, No Throat pain, No Throat swelling, No Other Cardiovascular: No Chest Pain, No Palpitations, No Orthopnea, No Paroxysmal Noc. Dyspnea, No Edema, No Lt Headedness, No Other Respiratory: No Cough, No Dry, No Shortness of breath, No SOB with excertion, No Wheezing, No Hemoptysis, No Pleuritic Pain, No Sputum, No Other Gastrointestinal: Nausea; No Vomiting; Abdominal Pain; No Diarrhea, No Constipation, No Melena, No Hematochezia, No Other Genitourinary: Dysuria, Frequency; No Incontinence, No Hematuria, No Retention, No Other Musculoskeletal: No other, No neck pain, No shoulder pain, No arm pain, No back pain, No hand pain, No leg pain, No foot pain Skin: No Rash, No Lesions, No Jaundice, No Bruising, No Other Objective Vitals Vital Signs Date Time Temp Pulse Resp B/P (MAP) Pulse Ox O2 Delivery O2 Flow Rate FiO2 08/02/24 05:00 98.5 78 17 134/76 (95) 92 98.5 08/01/24 20:30 Room Air* 0 21 Intake/Output Intake and Output 08/02/24 07:00 Intake Total 3691 ml Output Total 2700 ml Balance 991 ml Intake Oral 2641 ml IV Total 1050 ml Output Urine Total 2700 ml # Bowel Movements 1 Medications Current Medications Medications Dose Ordered Sig/Liliam Route Start Time Stop Time Status Last Admin Dose Admin Ceftriaxone Sodium 50 ml @ 100 mls/hr DAILY IV 07/30/24 10:00 08/01/24 09:22 100 MLS/HR Sodium Chloride 1,000 ml @ 100 mls/hr Q10H IV 07/29/24 11:00 08/02/24 05:03 100 MLS/HR Tamsulosin HCl 0.8 mg DAILY PO 07/29/24 11:00 08/01/24 09:22 0.8 MG Finasteride 5 mg DAILY PO 07/29/24 11:00 08/01/24 09:22 5 MG Diagnostic Test (Pha) 1 strip IQ4HR 07/29/24 12:00 08/02/24 03:51 1 STRIP Insulin Human Regular IQ4HR SC 07/29/24 12:00 Dextrose 50 ml UD PRN IV 07/29/24 11:00 Lorazepam 0.5 mg Q6HP PRN PO 07/29/24 11:00 Al Hydrox/Mg Hydrox/Simethicone 30 ml Q6HP PRN PO 07/29/24 11:00 Docusate Sodium 100 mg BIDPRN PRN PO 07/29/24 11:00 Temazepam 15 mg QHSP PRN PO 07/29/24 11:00 Acetaminophen/ Hydrocodone Bitart 1 tab Q4HP PRN PO 07/29/24 11:00 Ondansetron HCl 4 mg Q4HP PRN IV 07/29/24 11:00 Morphine Sulfate 2 mg Q4HPRN PRN IV 07/29/24 11:00 Acetaminophen 650 mg Q6HP PRN PO 07/30/24 02:00 07/30/24 16:31 650 MG Laboratory Results Laboratory Tests 07/31/24 13:27 Urinalysis Test 07/29/24 01:12 Urine Color Light-orange (Yellow) Urine Clarity Clear (Clear) Urine pH 6.0 (5.0-9.0) Urine Specific [place] 1.014 (1.001-1.035) Urine Protein 1+ (Negative) H Urine Ketones Negative (Negative) Urine Blood 1+ /uL (Negative) H Urine Nitrite Negative (Negative) Urine Bilirubin Negative (Negative) Urine Urobilinogen Normal mg/dL (Negative) Urine Leukocyte Esterase 1+ /uL (Negative) Urine RBC 9 /hpf (0 - 3) Urine WBC 24 /hpf (0 - 3) Urine Squamous Epithelial Cells Few /hpf (<5) Urine Transitional Epithelial Cells Few /hpf (<2) Urine Bacteria Few /hpf (None Seen) H Urine Mucus Few (None Seen) Urine Glucose Normal mg/dL (Normal) Microbiology Microbiology Date/Time Source Procedure Growth Status 07/29/24 03:01 Blood Blood Culture - Preliminary NO GROWTH AFTER 72 HOURS OF INCUBATION. Resulted 07/29/24 01:12 Voided Urine Urine Culture - Final Klebsiella pneumoniae - ESBL Complete Labs and/or images reviewed: Labs reviewed by me, Image(s) reviewed by me Assessment/Plan Assessment/Plan Covering for Dr Alfaro Sepsis secondary to acute urinary tract infection: Acute urinary tract infection with a pyelonephritis:Urine cultures growing ESBL Klebsiella, dc rocephin, start Invanz 4 mm left mid ureteral stone with hydronephrosis: Urology consult appreciated. Uncontrolled diabetes: Insulin sliding scale Time spent 40 minutes Patient is full code Plan discussed with: Patient Date of Service: Aug 02, 2024 Billing Provider: LEONOR DACOSTA MD Common Visit Codes: [id number] INP/OBS CARE(HIGH) LEONOR DACOSTA MD Aug 02, 2024 08:35
[2024-08-02] MEDS: ERTAPENEM SOD INJ 1 GM in SODIUM CHL 0.9% 50 ML IV SCH (10:11)
[2024-08-03 01:00] VITALS: BP 120/88; PULSE 93; RESP 18; TEMP 97.9; O2SAT 93
[2024-08-03 05:00] VITALS: BP 124/64; PULSE 70; RESP 18; TEMP 97.8; O2SAT 94
[2024-08-03 08:30] VITALS: BP 134/81; PULSE 61; RESP 19; TEMP 98.4; O2SAT 94
--- NOTE | 2024-08-03 11:21 | DVHPN2 ---
Subjective Patient seems him at bedside. No complaint today. Reviewed: Care Plan, H&P, Labs, Medications, Previous Orders, Radiology Changes from previous H/P or p: No Changes Eyes: No Pain, No Vision change, No Conjunctivae inflammation, No Eyelid inflammation, No Other, No Redness ENT: No Ear pain, No Ear discharge, No Nose pain, No Nose discharge, No Nose congestion, No Mouth pain, No Mouth swelling, No Throat pain, No Throat swelling, No Other Cardiovascular: No Chest Pain, No Palpitations, No Orthopnea, No Paroxysmal Noc. Dyspnea, No Edema, No Lt Headedness, No Other Respiratory: No Cough, No Dry, No Shortness of breath, No SOB with excertion, No Wheezing, No Hemoptysis, No Pleuritic Pain, No Sputum, No Other Gastrointestinal: Nausea; No Vomiting; Abdominal Pain; No Diarrhea, No Constipation, No Melena, No Hematochezia, No Other Genitourinary: Dysuria, Frequency; No Incontinence, No Hematuria, No Retention, No Other Musculoskeletal: No other, No neck pain, No shoulder pain, No arm pain, No back pain, No hand pain, No leg pain, No foot pain Skin: No Rash, No Lesions, No Jaundice, No Bruising, No Other Objective Vitals Vital Signs Date Time Temp Pulse Resp B/P (MAP) Pulse Ox O2 Delivery O2 Flow Rate FiO2 07/31/24 08:30 98.4 68 19 136/81 (98) 94 98.4 07/30/24 20:00 Room Air* 0 21 Intake/Output Intake and Output 08/03/24 07:00 Intake Total 2850 ml Output Total 4850 ml Balance -2000 ml Intake Oral 2800 ml IV Total 50 ml Output Urine Total 4850 ml # Bowel Movements 3 General Appearance: Alert, No acute distress HEENT: Atraumatic, PERRLA, EOMI, Mucous membr. moist/pink Neck: Supple Lungs: Clear to auscultation, Normal air movement Cardiovascular: Regular rate, Normal S1, Normal S2, No murmurs, Gallops, Rubs Abdomen: Normal bowel sounds, Soft, No tenderness Neuro: Cranial nerves 3-12 NL Psych/Mental Status: Mental status NL Medications Current Medications Medications Dose Ordered Sig/Liliam Route Start Time Stop Time Status Last Admin Dose Admin Sodium Chloride 1,000 ml @ 100 mls/hr Q10H IV 07/29/24 11:00 08/02/24 17:19 100 MLS/HR Tamsulosin HCl 0.8 mg DAILY PO 07/29/24 11:00 08/03/24 08:30 0.8 MG Finasteride 5 mg DAILY PO 07/29/24 11:00 08/03/24 08:30 5 MG Diagnostic Test (Pha) 1 strip IQ4HR 07/29/24 12:00 08/03/24 07:59 1 STRIP Insulin Human Regular IQ4HR SC 07/29/24 12:00 Dextrose 50 ml UD PRN IV 07/29/24 11:00 Lorazepam 0.5 mg Q6HP PRN PO 07/29/24 11:00 Al Hydrox/Mg Hydrox/Simethicone 30 ml Q6HP PRN PO 07/29/24 11:00 Docusate Sodium 100 mg BIDPRN PRN PO 07/29/24 11:00 Temazepam 15 mg QHSP PRN PO 07/29/24 11:00 Acetaminophen/ Hydrocodone Bitart 1 tab Q4HP PRN PO 07/29/24 11:00 Ondansetron HCl 4 mg Q4HP PRN IV 07/29/24 11:00 Morphine Sulfate 2 mg Q4HPRN PRN IV 07/29/24 11:00 Acetaminophen 650 mg Q6HP PRN PO 07/30/24 02:00 07/30/24 16:31 650 MG Ertapenem 1 gm/ Sodium Chloride 50 ml @ 100 mls/hr DAILY IV 08/02/24 10:00 08/03/24 08:30 100 MLS/HR Laboratory Results Laboratory Tests 07/31/24 13:27 Urinalysis Test 07/29/24 01:12 Urine Color Light-orange (Yellow) Urine Clarity Clear (Clear) Urine pH 6.0 (5.0-9.0) Urine Specific [place] 1.014 (1.001-1.035) Urine Protein 1+ (Negative) H Urine Ketones Negative (Negative) Urine Blood 1+ /uL (Negative) H Urine Nitrite Negative (Negative) Urine Bilirubin Negative (Negative) Urine Urobilinogen Normal mg/dL (Negative) Urine Leukocyte Esterase 1+ /uL (Negative) Urine RBC 9 /hpf (0 - 3) Urine WBC 24 /hpf (0 - 3) Urine Squamous Epithelial Cells Few /hpf (<5) Urine Transitional Epithelial Cells Few /hpf (<2) Urine Bacteria Few /hpf (None Seen) H Urine Mucus Few (None Seen) Urine Glucose Normal mg/dL (Normal) Microbiology Microbiology Date/Time Source Procedure Growth Status 07/29/24 03:01 Blood Blood Culture - Final NO GROWTH AFTER 5 DAYS OF INCUBATION. Complete 07/29/24 01:12 Voided Urine Urine Culture - Final Klebsiella pneumoniae - ESBL Complete Labs and/or images reviewed: Labs reviewed by me Assessment/Plan Assessment/Plan Pyelonephritis Obstructive stone 4 mm mid left ureter Diabetes uncontrolled Morbid obesity Plan: Continuing current management. Continuing with IV antibiotic Rocephin. IV fluid. Sliding scale insulin. Waiting for urology to see the patient. Plan discussed with: Patient Date of Service: Jul 31, 2024 Billing Provider: DANN PEARSON MD Common Visit Codes: [id number] INP/OBS CARE(HIGH) DANN PEARSON MD Aug 03, 2024 11:21
--- NOTE | 2024-08-03 11:48 | DVHPN2 ---
Subjective Patient seems him at bedside. No complaint today. Reviewed: Care Plan, H&P, Labs, Medications, Previous Orders, Radiology Eyes: No Pain, No Vision change, No Conjunctivae inflammation, No Eyelid inflammation, No Other, No Redness ENT: No Ear pain, No Ear discharge, No Nose pain, No Nose discharge, No Nose congestion, No Mouth pain, No Mouth swelling, No Throat pain, No Throat swelling, No Other Cardiovascular: No Chest Pain, No Palpitations, No Orthopnea, No Paroxysmal Noc. Dyspnea, No Edema, No Lt Headedness, No Other Respiratory: No Cough, No Dry, No Shortness of breath, No SOB with excertion, No Wheezing, No Hemoptysis, No Pleuritic Pain, No Sputum, No Other Gastrointestinal: Nausea; No Vomiting; Abdominal Pain; No Diarrhea, No Constipation, No Melena, No Hematochezia, No Other Genitourinary: Dysuria, Frequency; No Incontinence, No Hematuria, No Retention, No Other Musculoskeletal: No other, No neck pain, No shoulder pain, No arm pain, No back pain, No hand pain, No leg pain, No foot pain Skin: No Rash, No Lesions, No Jaundice, No Bruising, No Other Objective Vitals Vital Signs Date Time Temp Pulse Resp B/P (MAP) Pulse Ox O2 Delivery O2 Flow Rate FiO2 08/03/24 08:30 98.4 61 19 134/81 (98) 94 98.4 08/02/24 20:00 Room Air* 0 21 Intake/Output Intake and Output 08/03/24 07:00 Intake Total 2850 ml Output Total 4850 ml Balance -2000 ml Intake Oral 2800 ml IV Total 50 ml Output Urine Total 4850 ml # Bowel Movements 3 General Appearance: Alert, No acute distress HEENT: Atraumatic, PERRLA, EOMI, Mucous membr. moist/pink Neck: Supple Lungs: Clear to auscultation, Normal air movement Cardiovascular: Regular rate, Normal S1, Normal S2, No murmurs, Gallops, Rubs Abdomen: Normal bowel sounds, Soft, No tenderness Neuro: Cranial nerves 3-12 NL Psych/Mental Status: Mental status NL Medications Current Medications Medications Dose Ordered Sig/Liliam Route Start Time Stop Time Status Last Admin Dose Admin Sodium Chloride 1,000 ml @ 100 mls/hr Q10H IV 07/29/24 11:00 08/02/24 17:19 100 MLS/HR Tamsulosin HCl 0.8 mg DAILY PO 07/29/24 11:00 08/03/24 08:30 0.8 MG Finasteride 5 mg DAILY PO 07/29/24 11:00 08/03/24 08:30 5 MG Diagnostic Test (Pha) 1 strip IQ4HR 07/29/24 12:00 08/03/24 07:59 1 STRIP Insulin Human Regular IQ4HR SC 07/29/24 12:00 Dextrose 50 ml UD PRN IV 07/29/24 11:00 Lorazepam 0.5 mg Q6HP PRN PO 07/29/24 11:00 Al Hydrox/Mg Hydrox/Simethicone 30 ml Q6HP PRN PO 07/29/24 11:00 Docusate Sodium 100 mg BIDPRN PRN PO 07/29/24 11:00 Temazepam 15 mg QHSP PRN PO 07/29/24 11:00 Acetaminophen/ Hydrocodone Bitart 1 tab Q4HP PRN PO 07/29/24 11:00 Ondansetron HCl 4 mg Q4HP PRN IV 07/29/24 11:00 Morphine Sulfate 2 mg Q4HPRN PRN IV 07/29/24 11:00 Acetaminophen 650 mg Q6HP PRN PO 07/30/24 02:00 07/30/24 16:31 650 MG Ertapenem 1 gm/ Sodium Chloride 50 ml @ 100 mls/hr DAILY IV 08/02/24 10:00 08/03/24 08:30 100 MLS/HR Laboratory Results Laboratory Tests 07/31/24 13:27 Urinalysis Test 07/29/24 01:12 Urine Color Light-orange (Yellow) Urine Clarity Clear (Clear) Urine pH 6.0 (5.0-9.0) Urine Specific [place] 1.014 (1.001-1.035) Urine Protein 1+ (Negative) H Urine Ketones Negative (Negative) Urine Blood 1+ /uL (Negative) H Urine Nitrite Negative (Negative) Urine Bilirubin Negative (Negative) Urine Urobilinogen Normal mg/dL (Negative) Urine Leukocyte Esterase 1+ /uL (Negative) Urine RBC 9 /hpf (0 - 3) Urine WBC 24 /hpf (0 - 3) Urine Squamous Epithelial Cells Few /hpf (<5) Urine Transitional Epithelial Cells Few /hpf (<2) Urine Bacteria Few /hpf (None Seen) H Urine Mucus Few (None Seen) Urine Glucose Normal mg/dL (Normal) Microbiology Microbiology Date/Time Source Procedure Growth Status 07/29/24 03:01 Blood Blood Culture - Final NO GROWTH AFTER 5 DAYS OF INCUBATION. Complete 07/29/24 01:12 Voided Urine Urine Culture - Final Klebsiella pneumoniae - ESBL Complete Assessment/Plan Assessment/Plan Pyelonephritis Obstructive stone 4 mm mid left ureter Diabetes uncontrolled Morbid obesity Plan: Continuing current management. Continuing with IV antibiotic Rocephin. IV fluid. Sliding scale insulin. Waiting for urology to see the patient. DANN PEARSON MD Aug 03, 2024 11:48
[2024-08-03 12:30] VITALS: BP 130/87; PULSE 80; RESP 18; TEMP 97.7; O2SAT 98
[2024-08-03 16:46] VITALS: BP 118/68; PULSE 60; RESP 18; TEMP 98.5; O2SAT 98
[2024-08-03 21:00] VITALS: BP 120/66; PULSE 65; RESP 18; TEMP 98.4; O2SAT 96
[2024-08-04] VITALS (7 sets, daily range): BP systolic 101–131; BP diastolic 48–76; PULSE 60–80; RESP 18–20; TEMP 97.6–98.9; O2SAT 92–99
--- NOTE | 2024-08-04 13:32 | DVHPN2 ---
Subjective Patient seems him at bedside. No complaint today. Reviewed: Care Plan, H&P, Labs, Medications, Previous Orders, Radiology Changes from previous H/P or p: No Changes Eyes: No Pain, No Vision change, No Conjunctivae inflammation, No Eyelid inflammation, No Other, No Redness ENT: No Ear pain, No Ear discharge, No Nose pain, No Nose discharge, No Nose congestion, No Mouth pain, No Mouth swelling, No Throat pain, No Throat swelling, No Other Cardiovascular: No Chest Pain, No Palpitations, No Orthopnea, No Paroxysmal Noc. Dyspnea, No Edema, No Lt Headedness, No Other Respiratory: No Cough, No Dry, No Shortness of breath, No SOB with excertion, No Wheezing, No Hemoptysis, No Pleuritic Pain, No Sputum, No Other Gastrointestinal: Nausea; No Vomiting; Abdominal Pain; No Diarrhea, No Constipation, No Melena, No Hematochezia, No Other Genitourinary: Dysuria, Frequency; No Incontinence, No Hematuria, No Retention, No Other Musculoskeletal: No other, No neck pain, No shoulder pain, No arm pain, No back pain, No hand pain, No leg pain, No foot pain Skin: No Rash, No Lesions, No Jaundice, No Bruising, No Other Objective Vitals Vital Signs Date Time Temp Pulse Resp B/P (MAP) Pulse Ox O2 Delivery O2 Flow Rate FiO2 08/04/24 09:00 98.3 80 20 129/72 (91) 92 98.3 08/04/24 08:00 Room Air* 0 21 Intake/Output Intake and Output 08/04/24 07:00 Intake Total 2300 ml Output Total 3200 ml Balance -900 ml Intake Oral 2250 ml IV Total 50 ml Output Urine Total 3200 ml # Bowel Movements 1 General Appearance: Alert, No acute distress HEENT: Atraumatic, PERRLA, EOMI, Mucous membr. moist/pink Neck: Supple Lungs: Clear to auscultation, Normal air movement Cardiovascular: Regular rate, Normal S1, Normal S2, No murmurs, Gallops, Rubs Abdomen: Normal bowel sounds, Soft, No tenderness Neuro: Cranial nerves 3-12 NL Psych/Mental Status: Mental status NL Medications Current Medications Medications Dose Ordered Sig/Liliam Route Start Time Stop Time Status Last Admin Dose Admin Sodium Chloride 1,000 ml @ 100 mls/hr Q10H IV 07/29/24 11:00 08/04/24 09:20 100 MLS/HR Tamsulosin HCl 0.8 mg DAILY PO 07/29/24 11:00 08/04/24 08:26 0.8 MG Finasteride 5 mg DAILY PO 07/29/24 11:00 08/04/24 08:25 5 MG Diagnostic Test (Pha) 1 strip IQ4HR 07/29/24 12:00 08/04/24 11:53 1 STRIP Insulin Human Regular IQ4HR SC 07/29/24 12:00 Dextrose 50 ml UD PRN IV 07/29/24 11:00 Lorazepam 0.5 mg Q6HP PRN PO 07/29/24 11:00 Al Hydrox/Mg Hydrox/Simethicone 30 ml Q6HP PRN PO 07/29/24 11:00 Docusate Sodium 100 mg BIDPRN PRN PO 07/29/24 11:00 Temazepam 15 mg QHSP PRN PO 07/29/24 11:00 Acetaminophen/ Hydrocodone Bitart 1 tab Q4HP PRN PO 07/29/24 11:00 Ondansetron HCl 4 mg Q4HP PRN IV 07/29/24 11:00 Morphine Sulfate 2 mg Q4HPRN PRN IV 07/29/24 11:00 Acetaminophen 650 mg Q6HP PRN PO 07/30/24 02:00 07/30/24 16:31 650 MG Ertapenem 1 gm/ Sodium Chloride 50 ml @ 100 mls/hr DAILY IV 08/02/24 10:00 08/04/24 09:21 100 MLS/HR Laboratory Results Laboratory Tests 07/31/24 13:27 Urinalysis Test 07/29/24 01:12 Urine Color Light-orange (Yellow) Urine Clarity Clear (Clear) Urine pH 6.0 (5.0-9.0) Urine Specific [place] 1.014 (1.001-1.035) Urine Protein 1+ (Negative) H Urine Ketones Negative (Negative) Urine Blood 1+ /uL (Negative) H Urine Nitrite Negative (Negative) Urine Bilirubin Negative (Negative) Urine Urobilinogen Normal mg/dL (Negative) Urine Leukocyte Esterase 1+ /uL (Negative) Urine RBC 9 /hpf (0 - 3) Urine WBC 24 /hpf (0 - 3) Urine Squamous Epithelial Cells Few /hpf (<5) Urine Transitional Epithelial Cells Few /hpf (<2) Urine Bacteria Few /hpf (None Seen) H Urine Mucus Few (None Seen) Urine Glucose Normal mg/dL (Normal) Microbiology Microbiology Date/Time Source Procedure Growth Status 07/29/24 03:01 Blood Blood Culture - Final NO GROWTH AFTER 5 DAYS OF INCUBATION. Complete 07/29/24 01:12 Voided Urine Urine Culture - Final Klebsiella pneumoniae - ESBL Complete Labs and/or images reviewed: Labs reviewed by me Assessment/Plan Assessment/Plan Pyelonephritis Obstructive stone 4 mm mid left ureter Diabetes uncontrolled Morbid obesity Plan: Continuing current management. Continuing with IV antibiotic Rocephin. IV fluid. Sliding scale insulin. Waiting for urology to see the patient. Waiting for culture of urine. Plan discussed with: Patient My Orders Orders - DANN PEARSON MD Procedure Category Date Status Time Complete Blood Count LAB 08/04/24 Transmitted 13:31 Basic Metabolic Panel LAB 08/04/24 Transmitted 13:31 Urine Bacterial EILEEN 08/04/24 Verified Culture 13:31 Date of Service: Aug 04, 2024 Billing Provider: DANN PEARSON MD Common Visit Codes: [id number] INP/OBS CARE(HIGH) DANN PEARSON MD Aug 04, 2024 13:32
[2024-08-04 15:05] LABS: Basophils # (auto) 0.1 10 ^3/uL (0-0.2); Basophils % (auto) 1.1 % (0.0-2.0); Eosinophils # (auto) 0.1 10 ^3/uL (0-0.8); Eosinophils % (auto) 2.6 % (0.0-7.0); Hematocrit 47.1 % (41.0-53.0); Lymphocytes # (auto) 1.3 10 ^3/uL (0.4-5.4); Lymphocytes % (auto) 22.8 % (10.0-50.0); Mean Corpuscular Hemoglobin 31.4 pg (28.0-32.0); Mean Corpuscular Volume 92.5 fL (80.0-100.0); Monocytes # (auto) 0.8 10 ^3/uL (0-1.3); Monocytes % (auto) 13.8 % (0.0-12.0); Neutrophils # (auto) 3.4 10 ^3/uL (1.6-8.6); Neutrophils % (auto) 59.7 % (37.0-80.0); Nucleated Red Blood Cells % 0.1 %; Platelet Count (auto) 245 10^3/uL (140-450); Red Blood Cells 5.09 10^6/uL (4.5-5.90); Red Cell Distribution Width 13.7 % (11.8-14.3); White Blood Cell 5.8 10^3/uL (4.4-10.8)
[2024-08-04 15:13] LABS: Chloride 104 mmol/L (98-107); Potassium 3.8 mmol/L (3.5-5.1); Sodium 138 mmol/L (136-145)
[2024-08-04 15:14] LABS: Anion Gap 8 (5-15); Carbon Dioxide 26 mmol/L (20-31)
[2024-08-04 15:15] LABS: Calcium 9.3 mg/dL (8.7-10.4)
[2024-08-04 15:20] LABS: BUN/Creatinine Ratio 9.6 (10.0-20.0); Glucose 90 mg/dL (74-106)
[2024-08-04 15:23] LABS: Blood Urea Nitrogen 8 mg/dL (9-23)
[2024-08-05] VITALS (8 sets, daily range): BP systolic 90–122; BP diastolic 50–65; PULSE 67–91; RESP 18–20; TEMP 97.7–98.5; O2SAT 91–99
--- NOTE | 2024-08-05 08:13 | DVHPN2 ---
Subjective Patient seems him at bedside. No complaint today. Reviewed: Care Plan, H&P, Labs, Medications, Previous Orders, Radiology Eyes: No Pain, No Vision change, No Conjunctivae inflammation, No Eyelid inflammation, No Other, No Redness ENT: No Ear pain, No Ear discharge, No Nose pain, No Nose discharge, No Nose congestion, No Mouth pain, No Mouth swelling, No Throat pain, No Throat swelling, No Other Cardiovascular: No Chest Pain, No Palpitations, No Orthopnea, No Paroxysmal Noc. Dyspnea, No Edema, No Lt Headedness, No Other Respiratory: No Cough, No Dry, No Shortness of breath, No SOB with excertion, No Wheezing, No Hemoptysis, No Pleuritic Pain, No Sputum, No Other Gastrointestinal: Nausea; No Vomiting; Abdominal Pain; No Diarrhea, No Constipation, No Melena, No Hematochezia, No Other Genitourinary: Dysuria, Frequency; No Incontinence, No Hematuria, No Retention, No Other Musculoskeletal: No other, No neck pain, No shoulder pain, No arm pain, No back pain, No hand pain, No leg pain, No foot pain Skin: No Rash, No Lesions, No Jaundice, No Bruising, No Other Objective Vitals Vital Signs Date Time Temp Pulse Resp B/P (MAP) Pulse Ox O2 Delivery O2 Flow Rate FiO2 08/05/24 05:00 97.9 73 20 90/50 (63) 94 97.9 08/04/24 20:00 Room Air* 0 21 Intake/Output Intake and Output 08/05/24 07:00 Intake Total 4095 ml Output Total 3425 ml Balance 670 ml Intake Oral 3045 ml IV Total 1050 ml Output Urine Total 3425 ml # Bowel Movements 1 General Appearance: Alert, No acute distress HEENT: Atraumatic, PERRLA, EOMI, Mucous membr. moist/pink Neck: Supple Lungs: Clear to auscultation, Normal air movement Cardiovascular: Regular rate, Normal S1, Normal S2, No murmurs, Gallops, Rubs Abdomen: Normal bowel sounds, Soft, No tenderness Neuro: Cranial nerves 3-12 NL Psych/Mental Status: Mental status NL Medications Current Medications Medications Dose Ordered Sig/Liliam Route Start Time Stop Time Status Last Admin Dose Admin Sodium Chloride 1,000 ml @ 100 mls/hr Q10H IV 07/29/24 11:00 08/05/24 03:08 100 MLS/HR Tamsulosin HCl 0.8 mg DAILY PO 07/29/24 11:00 08/04/24 08:26 0.8 MG Finasteride 5 mg DAILY PO 07/29/24 11:00 08/04/24 08:25 5 MG Diagnostic Test (Pha) 1 strip IQ4HR 07/29/24 12:00 08/05/24 03:09 1 STRIP Insulin Human Regular IQ4HR SC 07/29/24 12:00 Dextrose 50 ml UD PRN IV 07/29/24 11:00 Lorazepam 0.5 mg Q6HP PRN PO 07/29/24 11:00 Al Hydrox/Mg Hydrox/Simethicone 30 ml Q6HP PRN PO 07/29/24 11:00 Docusate Sodium 100 mg BIDPRN PRN PO 07/29/24 11:00 Temazepam 15 mg QHSP PRN PO 07/29/24 11:00 Acetaminophen/ Hydrocodone Bitart 1 tab Q4HP PRN PO 07/29/24 11:00 Ondansetron HCl 4 mg Q4HP PRN IV 07/29/24 11:00 Morphine Sulfate 2 mg Q4HPRN PRN IV 07/29/24 11:00 Acetaminophen 650 mg Q6HP PRN PO 07/30/24 02:00 07/30/24 16:31 650 MG Ertapenem 1 gm/ Sodium Chloride 50 ml @ 100 mls/hr DAILY IV 08/02/24 10:00 08/04/24 09:21 100 MLS/HR Laboratory Results Laboratory Tests 08/04/24 14:52 Chemistry Test 08/04/24 14:52 Calcium Level 9.3 mg/dL (8.7-10.4) Urinalysis Test 07/29/24 01:12 Urine Color Light-orange (Yellow) Urine Clarity Clear (Clear) Urine pH 6.0 (5.0-9.0) Urine Specific [place] 1.014 (1.001-1.035) Urine Protein 1+ (Negative) H Urine Ketones Negative (Negative) Urine Blood 1+ /uL (Negative) H Urine Nitrite Negative (Negative) Urine Bilirubin Negative (Negative) Urine Urobilinogen Normal mg/dL (Negative) Urine Leukocyte Esterase 1+ /uL (Negative) Urine RBC 9 /hpf (0 - 3) Urine WBC 24 /hpf (0 - 3) Urine Squamous Epithelial Cells Few /hpf (<5) Urine Transitional Epithelial Cells Few /hpf (<2) Urine Bacteria Few /hpf (None Seen) H Urine Mucus Few (None Seen) Urine Glucose Normal mg/dL (Normal) Microbiology Microbiology Date/Time Source Procedure Growth Status 07/29/24 03:01 Blood Blood Culture - Final NO GROWTH AFTER 5 DAYS OF INCUBATION. Complete 07/29/24 01:12 Voided Urine Urine Culture - Final Klebsiella pneumoniae - ESBL Complete Assessment/Plan Assessment/Plan Pyelonephritis Obstructive stone 4 mm mid left ureter Diabetes uncontrolled Morbid obesity Plan: Continuing current management. Continuing with IV antibiotic Rocephin. IV fluid. Sliding scale insulin. Waiting for urology to see the patient. My Orders Orders - DANN PEARSON MD Procedure Category Date Status Time Urine Bacterial EILEEN 08/04/24 In Process Culture 13:31 DANN PEARSON MD Aug 05, 2024 08:13
[2024-08-06] VITALS (7 sets, daily range): BP systolic 91–135; BP diastolic 45–79; PULSE 60–82; RESP 18; TEMP 97.5–98.1; O2SAT 95–99
--- NOTE | 2024-08-06 14:42 | DVHPN2 ---
Assessment/Plan Assessment/Plan Progress note Subjective 54 M admitted for pyelonephitis 2/2 ureterolithiasis and UTI Objective Physical exam Alert, oriented x3 Morbid obesity PERRLA No JVD Clear breath sounds bilaterally S1-S2 regular rate and rhythm no murmur Abdomen soft nontender No flank pain Moving all four extremities No lower extremity edema Imaging CTAp with nephrolithiasis and pyelonephritis Assessment and plan Pyelonephritis ESBL UTI Morbid obesity Ureterolithiasis Urology consult appreciated conservative management repeat kidney US Pain management encourage oral hydration c/w invanz insurance wont cover home abx, will complete course here midline placement Replete electrolytes Diet heart healthy DVT prophylaxis lovenox 15 minutes spent discussing regarding lifestyle, dietary and exercise changes to modify disease process and improve quality of life Plan discussed with: Patient My Orders Orders - SHERI ROBISON MD Procedure Category Date Status Time * Edger Machine Helper CONS 08/06/24 Transmitted Consult Insert Midline ORDERS 08/06/24 Transmitted 11:34 Date of Service: Aug 06, 2024 Billing Provider: SHERI ROBISON MD Common Visit Codes: [id number] INP/OBS CARE(HIGH) Secondary Visit Codes: [id number] COUNSELING IND SHERI ROBISON MD Aug 06, 2024 14:42
[2024-08-06] MEDS ORDERED: POLYETHYLENE GLYCOL 17 GM PWDR PO PRN (14:45)
--- NOTE | 2024-08-06 15:59 | DVH ---
INDICATION: hydro interval TECHNIQUE: Multiple real-time sonographic images of the kidneys and bladder were obtained. COMPARISON: None FINDINGS: The right kidney measures 13 cm in length, which is normal in size. There is normal echogenicity of t he right kidney. No hydronephrosis. The left kidney measures 13 cm in length, which is normal in size. There is normal echogenicity of th e left kidney. No hydronephrosis. No large intraluminal masses are seen in the bladder. IMPRESSION: 1. Normal sonographic appearance of the kidneys. No hydronephrosis.
[2024-08-07] VITALS (7 sets, daily range): BP systolic 84–116; BP diastolic 42–66; PULSE 56–83; RESP 16–20; TEMP 97.7–98.2; O2SAT 93–95
--- NOTE | 2024-08-07 02:58 | DVHNC2 ---
Procedure - Suprapubic Catheter Change (SPC) Procedure Note Associated CPT code 72907 (Change of cystostomy tube; complicated) Indication: Overnight the patient had excruciating suprapubic pain, abdominal distention, sensation of full bladder, bedside ultrasound reveals 650 cc of retained urine in the bladder along with in situ suprapubic catheter. Multiple flushing trials did not unclog the catheter. Decision was made to change the catheter. Consent: The procedure, indication, and common complications were discussed at the bedside. The patient verbally consented to the procedure. Time-out: Quick time-out was performed at each step with RN at bedside. Removal of old catheter: 1. Suprapubic area palpation revealed a hard, globelike bladder. 2. Old catheter deflation. 3. Deflate the balloon of the old catheter. 4. Remove the old catheter 5. Noted how far the old catheter length was inside the patient. 6. Pair of gloves changed. 7. With iodine prep, the skin is cleaned 3 times from center to periphery. Sterile gauze is used to wipe the area clean and dry. Insertion of new catheter: 1. Identified appropriate size catheter 22F, 3-way (in case irrigation is needed, past catheter size, 22Fr, 2-way). 2. Open standard Snowden kit, using sterile procedure. 3. Attach Snowden to drainage catheter. 4. Apply lubricant liberally to the first two inches of the catheter tip. 5. Length from the previous catheter marked to be inserted into the abdominal cavity. 6. watch supervisor the pre-lubricated catheter and inserted slightly further than the previous catheter was in; urine flows freely to confirm that the catheter is in the correct position. 7. Attach syringe to the inflation port of the new catheter (normally 10cc of normal saline). 8. The patient denied any pain or discomfort, and the urine bag is placed under gravitational force for the free flow of clean urine. Post-insertion care: 1. Move to the next step quickly to minimize the time that there is no catheter in the fistula site. 2. The catheter is securely placed with the associated apparatus to the right of the suprapubic area. 3. Red flags and warning signs were discussed with the patient and RN team at the bedside. 4. Culture and sensitivity sent with continuation of care as per the primary team. 5. The patient verbally agreed to the plan. Appreciate the wonderful support of the nursing and ancillary staff. Inserted by: Raleigh Dietz MD PGY 2 Internal Medicine Resident Under the supervision of Dr. Gotti. RALEIGH DIETZ RESIDENT Aug 07, 2024 02:58
--- NOTE | 2024-08-07 08:17 | DVHPN2 ---
Assessment/Plan Assessment/Plan Progress note Subjective 54 M admitted for pyelonephitis 2/2 ureterolithiasis and UTI Patient is seen by me during rounds No acute complaint, c/w IV ertapenem day 6 Objective Physical exam Alert, oriented x3 Morbid obesity PERRLA No JVD Clear breath sounds bilaterally S1-S2 regular rate and rhythm no murmur Abdomen soft nontender No flank pain Moving all four extremities No lower extremity edema Imaging CTAp with nephrolithiasis and pyelonephritis Assessment and plan Pyelonephritis ESBL UTI Morbid obesity Ureterolithiasis Urology consult appreciated conservative management repeat kidney US no hydronephrosis Pain management encourage oral hydration c/w invanz insurance wont cover home abx, will complete course here midline placement Replete electrolytes Diet heart healthy DVT prophylaxis lovenox Plan discussed with: Patient My Orders Orders - SHERI ROBISON MD Procedure Category Date Status Time * Health Spa Manager CONS 08/06/24 Transmitted Consult Insert Midline ORDERS 08/06/24 Transmitted 11:34 Polyethylene Glycol PHA 08/06/24 In Process 17g Powder (Miralax 14:45 Enoxaparin Sodium PHA 08/07/24 In Process (Lovenox) 10:00 Kidney US 08/06/24 Resulted 14:38 Complete Blood Count LAB 08/08/24 Verified 04:00 Comprehensive LAB 08/08/24 Verified Metabolic Panel 04:00 Date of Service: Aug 07, 2024 Billing Provider: SHERI ROBISON MD Common Visit Codes: [id number] INP/OBS CARE(HIGH) SHERI ROBISON MD Aug 07, 2024 08:17
[2024-08-07] MEDS: ENOXAPARIN SOD 40 MG/0.4 ML SYRINGE SC SCH (11:04)
[2024-08-08 01:00] VITALS: BP 96/66; PULSE 61; RESP 20; TEMP 98; O2SAT 95
[2024-08-08 05:00] VITALS: BP 97/61; PULSE 81; RESP 20; TEMP 98.2; O2SAT 92
[2024-08-08 06:36] LABS: Albumin 3.8 g/dL (3.2-4.8); Alkaline Phosphatase 62 U/L (46-116); Anion Gap 9 (5-15); Aspartate Aminotransferase 33 U/L (13-40); BUN/Creatinine Ratio 9.3 (10.0-20.0); Calcium 9.6 mg/dL (8.7-10.4); Carbon Dioxide 24 mmol/L (20-31); Chloride 103 mmol/L (98-107); Glucose 105 mg/dL (74-106); Potassium 4.1 mmol/L (3.5-5.1)
[2024-08-08 06:37] LABS: Bilirubin, Total 0.7 mg/dL (0.2-1.0); Total Protein 6.8 g/dL (5.7-8.2)
[2024-08-08 06:46] LABS: Basophils # (auto) 0.1 10 ^3/uL (0-0.2); Basophils % (auto) 0.9 % (0.0-2.0); Eosinophils # (auto) 0.2 10 ^3/uL (0-0.8); Eosinophils % (auto) 3.3 % (0.0-7.0); Hemoglobin 16.6 g/dL (13.5-17.5); Lymphocytes # (auto) 1.7 10 ^3/uL (0.4-5.4); Lymphocytes % (auto) 28.3 % (10.0-50.0); Mean Corpuscular Hemoglobin 32.4 pg (28.0-32.0); Mean Corpuscular Hgb Conc. 33.9 g/dL (32.0-36.0); Mean Corpuscular Volume 95.6 fL (80.0-100.0); Monocytes # (auto) 0.7 10 ^3/uL (0-1.3); Monocytes % (auto) 12.5 % (0.0-12.0); Neutrophils # (auto) 3.3 10 ^3/uL (1.6-8.6); Nucleated Red Blood Cells % 0.5 %; Platelet Count (auto) 222 10^3/uL (140-450); Red Blood Cells 5.13 10^6/uL (4.5-5.90); Red Cell Distribution Width 14.1 % (11.8-14.3)
[2024-08-08 06:49] LABS: Alanine Aminotransferase 44 U/L (7-40); Blood Urea Nitrogen 7 mg/dL (9-23); Sodium 136 mmol/L (136-145)
[2024-08-08 08:00] VITALS: PULSE 69; RESP 16; O2SAT 93
[2024-08-08 09:00] VITALS: BP 100/70; PULSE 69; RESP 16; TEMP 97.9; O2SAT 93
[2024-08-08] MEDS ORDERED: FOSF3POW PO (09:03)
[2024-08-08] MEDS ORDERED: TAMS-35 PO (09:03)
[2024-08-08] MEDS ORDERED: FIN5T PO (09:03)
--- NOTE | 2024-08-08 09:06 | DVHDS2 ---
Discharge Summary Date of Admission Jul 29, 2024 at 10:56 Date of Discharge: Aug 08, 2024 Labs/Diagnostic Data: Laboratory Results Test 08/08/24 04:59 08/05/24 08:19 07/31/24 13:27 07/29/24 02:40 White Blood Count 6.0 10^3/uL (4.4-10.8) Red Blood Count 5.13 10^6/uL (4.5-5.90) Hemoglobin 16.6 g/dL (13.5-17.5) Hematocrit 49.0 % (41.0-53.0) Mean Corpuscular Volume 95.6 fL (80.0-100.0) Mean Corpuscular Hemoglobin 32.4 pg (28.0-32.0) Mean Corpuscular Hemoglobin Concent 33.9 g/dL (32.0-36.0) Red Cell Distribution Width 14.1 % (11.8-14.3) Platelet Count 222 10^3/uL (140-450) Mean Platelet Volume 9.3 fL (6.9-10.8) Neutrophils (%) (Auto) 55.0 % (37.0-80.0) Lymphocytes (%) (Auto) 28.3 % (10.0-50.0) Monocytes (%) (Auto) 12.5 % (0.0-12.0) Eosinophils (%) (Auto) 3.3 % (0.0-7.0) Basophils (%) (Auto) 0.9 % (0.0-2.0) Neutrophils # (Auto) 3.3 10 ^3/uL (1.6-8.6) Lymphocytes # (Auto) 1.7 10 ^3/uL (0.4-5.4) Monocytes # (Auto) 0.7 10 ^3/uL (0-1.3) Eosinophils # (Auto) 0.2 10 ^3/uL (0-0.8) Basophils # (Auto) 0.1 10 ^3/uL (0-0.2) Nucleated Red Blood Cells 0.5 % Sodium Level 136 mmol/L (136-145) Potassium Level 4.1 mmol/L (3.5-5.1) Chloride Level 103 mmol/L (98-107) Carbon Dioxide Level 24 mmol/L (20-31) Anion Gap 9 (5-15) Blood Urea Nitrogen 7 mg/dL (9-23) Creatinine 0.75 mg/dL (0.700-1.30) Glomerular Filtration Rate Calc 108 mL/min (>90) BUN/Creatinine Ratio 9.3 (10.0-20.0) Serum Glucose 105 mg/dL (74-106) Calcium Level 9.6 mg/dL (8.7-10.4) Total Bilirubin 0.7 mg/dL (0.2-1.0) Aspartate Amino Transferase (AST) 33 U/L (13-40) Alanine Aminotransferase (ALT) 44 U/L (7-40) Alkaline Phosphatase 62 U/L (46-116) Total Protein 6.8 g/dL (5.7-8.2) Albumin 3.8 g/dL (3.2-4.8) POC Glucose 108 mg/dl (70-106) Differential Total Cells Counted 100.0 (100) Neutrophils % (Manual) 81 (37.0-80.0) Band Neutrophils % (Manual) 0 Lymphocytes % (Manual) 9 (10.0-50.0) Monocytes % (Manual) 7 (0-12) Eosinophils % (Manual) 3 (0-7) Basophils % (Manual) 0 (0.0-2.0) Metamyelocytes % (manual) 0 Myelocytes % (Manual) 0 Promyelocytes % (Manual) 0 Blast Cells % (Manual) 0 Reactive Lymphocytes 0 Platelet Estimate Decrea Giant Platelets Lactic Acid Level 1.3 mmol/L (0.4-2.0) Test 07/29/24 01:12 07/29/24 00:42 Urine Color Light-orange (Yellow) Urine Clarity Clear (Clear) Urine pH 6.0 (5.0-9.0) Urine Specific [place] 1.014 (1.001-1.035) Urine Protein 1+ (Negative) Urine Ketones Negative (Negative) Urine Blood 1+ /uL (Negative) Urine Nitrite Negative (Negative) Urine Bilirubin Negative (Negative) Urine Urobilinogen Normal mg/dL (Negative) Urine Leukocyte Esterase 1+ /uL (Negative) Urine RBC 9 /hpf (0 - 3) Urine WBC 24 /hpf (0 - 3) Urine Squamous Epithelial Cells Few /hpf (<5) Urine Transitional Epithelial Cells Few /hpf (<2) Urine Bacteria Few /hpf (None Seen) Urine Mucus Few (None Seen) Urine Glucose Normal mg/dL (Normal) Lipase 26 U/L (12-53) Other Laboratory Tests 08/08/24 04:59 Brief Hx & Hospital Course: 54-year-old male admitted for pyelonephritis, found to have nephrolithiasis for conservative management per Urology, and ESBL UTI. Patient was placed on Snowden and later on discontinue. Later culture with Enterococcus and Staph epidermidis, likely contaminant, [place] [id number] heart. Patient completed 7 days of ertapenem, discharge with 1 dose of fosfomycin. Patient to follow up with primary care and Urology 15 minutes spent discussing regarding lifestyle, dietary and exercise changes to modify disease process and improve quality of life Condition at Discharge: Good Final Diagnosis/Problems List Pyelonephritis 2/2 ESBL UTI Morbid obesity Ureterolithiasis non obstructing Bacterial colonization Discharge Disposition: Home Discharge Instruct/Medications Diet: Consistent carbohydrate, Cardiac 2g Na,low cholest Diet comment: Recommended portion control Activity: No Restrictions, As Tolerated Follow Up/Referral: Urology PCP to repeat UA and culture Medications: flomax finasteride fosfomycin Discharge Statement: "Patient was advised to return to the ER or call 911 if any headaches, dizziness, shortness of breath, chest pain, abdominal pain, bleeding, fevers, or worsening of medical condition. Patient was counseled about treatment plan, medications, possible side effects, patientverbalized understanding. All questions were answered to the best of my ability. This discharge took greater then 30 minutes in planning, reviewing documentation, counseling the patient, and discussing with other team members." ASSESSMENT ASSESSMENT Assessment Pyelonephritis 2/2 ESBL UTI Morbid obesity Ureterolithiasis non obstructing Bacterial colonization Date of Service: Aug 08, 2024 Billing Provider: SHERI ROBISON MD Common Visit Codes: [id number] DISCH DAY >30min Secondary Visit Codes: [id number] COUNSELING IND SHERI ROBISON MD Aug 08, 2024 09:06
--- NOTE | 2024-08-08 12:13 | DVHDS2 ---
Discharge Summary Date of Admission Jul 29, 2024 at 10:56 Date of Discharge: Aug 08, 2024 Labs/Diagnostic Data: Laboratory Results Test 08/08/24 04:59 08/05/24 08:19 07/31/24 13:27 07/29/24 02:40 White Blood Count 6.0 10^3/uL (4.4-10.8) Red Blood Count 5.13 10^6/uL (4.5-5.90) Hemoglobin 16.6 g/dL (13.5-17.5) Hematocrit 49.0 % (41.0-53.0) Mean Corpuscular Volume 95.6 fL (80.0-100.0) Mean Corpuscular Hemoglobin 32.4 pg (28.0-32.0) Mean Corpuscular Hemoglobin Concent 33.9 g/dL (32.0-36.0) Red Cell Distribution Width 14.1 % (11.8-14.3) Platelet Count 222 10^3/uL (140-450) Mean Platelet Volume 9.3 fL (6.9-10.8) Neutrophils (%) (Auto) 55.0 % (37.0-80.0) Lymphocytes (%) (Auto) 28.3 % (10.0-50.0) Monocytes (%) (Auto) 12.5 % (0.0-12.0) Eosinophils (%) (Auto) 3.3 % (0.0-7.0) Basophils (%) (Auto) 0.9 % (0.0-2.0) Neutrophils # (Auto) 3.3 10 ^3/uL (1.6-8.6) Lymphocytes # (Auto) 1.7 10 ^3/uL (0.4-5.4) Monocytes # (Auto) 0.7 10 ^3/uL (0-1.3) Eosinophils # (Auto) 0.2 10 ^3/uL (0-0.8) Basophils # (Auto) 0.1 10 ^3/uL (0-0.2) Nucleated Red Blood Cells 0.5 % Sodium Level 136 mmol/L (136-145) Potassium Level 4.1 mmol/L (3.5-5.1) Chloride Level 103 mmol/L (98-107) Carbon Dioxide Level 24 mmol/L (20-31) Anion Gap 9 (5-15) Blood Urea Nitrogen 7 mg/dL (9-23) Creatinine 0.75 mg/dL (0.700-1.30) Glomerular Filtration Rate Calc 108 mL/min (>90) BUN/Creatinine Ratio 9.3 (10.0-20.0) Serum Glucose 105 mg/dL (74-106) Calcium Level 9.6 mg/dL (8.7-10.4) Total Bilirubin 0.7 mg/dL (0.2-1.0) Aspartate Amino Transferase (AST) 33 U/L (13-40) Alanine Aminotransferase (ALT) 44 U/L (7-40) Alkaline Phosphatase 62 U/L (46-116) Total Protein 6.8 g/dL (5.7-8.2) Albumin 3.8 g/dL (3.2-4.8) POC Glucose 108 mg/dl (70-106) Differential Total Cells Counted 100.0 (100) Neutrophils % (Manual) 81 (37.0-80.0) Band Neutrophils % (Manual) 0 Lymphocytes % (Manual) 9 (10.0-50.0) Monocytes % (Manual) 7 (0-12) Eosinophils % (Manual) 3 (0-7) Basophils % (Manual) 0 (0.0-2.0) Metamyelocytes % (manual) 0 Myelocytes % (Manual) 0 Promyelocytes % (Manual) 0 Blast Cells % (Manual) 0 Reactive Lymphocytes 0 Platelet Estimate Decrea Giant Platelets Lactic Acid Level 1.3 mmol/L (0.4-2.0) Test 07/29/24 01:12 07/29/24 00:42 Urine Color Light-orange (Yellow) Urine Clarity Clear (Clear) Urine pH 6.0 (5.0-9.0) Urine Specific [place] 1.014 (1.001-1.035) Urine Protein 1+ (Negative) Urine Ketones Negative (Negative) Urine Blood 1+ /uL (Negative) Urine Nitrite Negative (Negative) Urine Bilirubin Negative (Negative) Urine Urobilinogen Normal mg/dL (Negative) Urine Leukocyte Esterase 1+ /uL (Negative) Urine RBC 9 /hpf (0 - 3) Urine WBC 24 /hpf (0 - 3) Urine Squamous Epithelial Cells Few /hpf (<5) Urine Transitional Epithelial Cells Few /hpf (<2) Urine Bacteria Few /hpf (None Seen) Urine Mucus Few (None Seen) Urine Glucose Normal mg/dL (Normal) Lipase 26 U/L (12-53) Other Laboratory Tests 08/08/24 04:59 Final Diagnosis/Problems List Pyelonephritis 2/2 ESBL UTI Morbid obesity Ureterolithiasis non obstructing Bacterial colonization Discharge Disposition: Home Discharge Instruct/Medications Diet: Consistent carbohydrate, Cardiac 2g Na,low cholest Diet comment: Recommended portion control Activity: No Restrictions, As Tolerated Follow Up/Referral: Urology PCP to repeat UA and culture Medications: flomax finasteride fosfomycin Discharge Statement: "Patient was advised to return to the ER or call 911 if any headaches, dizziness, shortness of breath, chest pain, abdominal pain, bleeding, fevers, or worsening of medical condition. Patient was counseled about treatment plan, medications, possible side effects, patientverbalized understanding. All questions were answered to the best of my ability. This discharge took greater then 30 minutes in planning, reviewing documentation, counseling the patient, and discussing with other team members." ASSESSMENT ASSESSMENT Assessment Pyelonephritis 2/2 ESBL UTI Morbid obesity Ureterolithiasis non obstructing Bacterial colonization SHERI ROBISON MD Aug 08, 2024 12:13
[2024-08-08 13:00] VITALS: BP 108/69; PULSE 74; RESP 18; TEMP 98.1; O2SAT 94
== END 2024-08-08 14:51 | disposition home or self-care (01) | DRG 872 ==
LOC: ER 00:20 → OVERFLOW 10:56 → ER 11:51 → WEST WING 17:47 → CENTRAL 08-01 22:16
PROVIDERS: ADMIT Hospitalist; ATTEND Student in an Organized Health Care Education/Training Program
PROC: 05H933Z Insertion of Infusion Device into Right Brachial Vein, Percutaneous Approach (ICD-10-PCS; 2024-08-06)
PROC: B54MZZA Ultrasonography of Right Upper Extremity Veins, Guidance (ICD-10-PCS; 2024-08-06)
PROC: 05H933Z Insertion of Infusion Device into Right Brachial Vein, Percutaneous Approach (ICD-10-PCS; principal; 2024-08-07)
PROC: B54MZZA Ultrasonography of Right Upper Extremity Veins, Guidance (ICD-10-PCS; 2024-08-07)
DX: A41.9 Sepsis, unspecified organism (principal); N10 Acute pyelonephritis; Z68.43 Body mass index [BMI] 50.0-59.9, adult; N17.9 Acute kidney failure, unspecified; N20.1 Calculus of ureter; Z16.12 Extended spectrum beta lactamase (ESBL) resistance; E11.65 Type 2 diabetes mellitus with hyperglycemia; E66.01 Morbid (severe) obesity due to excess calories; I10 Essential (primary) hypertension; E11.9 Type 2 diabetes mellitus without complications; Z79.899 Other long term (current) drug therapy; Z79.4 Long term (current) use of insulin
CPT/HCPCS: 36415; 74176; 76775; 80048; 80053; 81001; 82962; 83605; 83690; 85007; 85025; 85027; 87040; 87086; 87088; 87186; 96365; 99291; G0378; J1335

== ENCOUNTER → 2024-11-19 | Outpatient (CLI) | payer OTHER ==
[~2024-11-19] MED LIST: FIN5T PO; FOSF3POW PO; TAMS-35 PO
[2024-11-19 09:50] LABS: Urine Bacteria None Seen /hpf (None Seen)
[2024-11-19 10:14] LABS: Urine Blood Negative /uL (Negative); Urine Clarity Clear (Clear); Urine Color Yellow (Yellow); Urine Mucus FEW (None Seen); Urine Protein, UAD Negative (Negative); Urine Specific Gravity 1.019 (1.001-1.035); Urine Squamous Epithelial Cell None Seen /hpf (<5); Urine Urobilinogen Normal (Negative); Urine WBC 1 /HPF (0-3)
[2024-11-19 10:24] LABS: Basophils # (auto) 0.1 10 ^3/uL (0-0.2); Basophils % (auto) 1.2 % (0.0-2.0); Eosinophils # (auto) 0.1 10 ^3/uL (0-0.8); Eosinophils % (auto) 3.2 % (0.0-7.0); Hematocrit 47.5 % (41.0-53.0); Hemoglobin 16.6 g/dL (13.5-17.5); Lymphocytes # (auto) 1.2 10 ^3/uL (0.4-5.4); Lymphocytes % (auto) 26.7 % (10.0-50.0); Mean Corpuscular Hemoglobin 31.8 pg (28.0-32.0); Mean Corpuscular Hgb Conc. 34.8 g/dL (32.0-36.0); Mean Corpuscular Volume 91.3 fL (80.0-100.0); Monocytes # (auto) 0.6 10 ^3/uL (0-1.3); Monocytes % (auto) 12.6 % (0.0-12.0); Neutrophils # (auto) 2.5 10 ^3/uL (1.6-8.6); Neutrophils % (auto) 56.3 % (37.0-80.0); Nucleated Red Blood Cells % 0.2 %; Platelet Count (auto) 110 10^3/uL (140-450); Red Blood Cells 5.21 10^6/uL (4.5-5.90); Red Cell Distribution Width 13.9 % (11.8-14.3); White Blood Cell 4.4 10^3/uL (4.4-10.8)
[2024-11-19 10:52] LABS: Alkaline Phosphatase 77 U/L (46-116); Anion Gap 8 (5-15); BUN/Creatinine Ratio 16.9 (10.0-20.0); Blood Urea Nitrogen 11 mg/dL (9-23); Calcium 8.9 mg/dL (8.7-10.4); Carbon Dioxide 22 mmol/L (20-31); Chloride 107 mmol/L (98-107); Glucose 101 mg/dL (74-106); Potassium 3.9 mmol/L (3.5-5.1); Sodium 137 mmol/L (136-145); Triglycerides 143 mg/dL (< 150)
[2024-11-19 10:53] LABS: Total Protein 6.8 g/dL (5.7-8.2)
[2024-11-19 10:54] LABS: Alanine Aminotransferase 41 U/L (7-40); Albumin 4.3 g/dL (3.2-4.8); Aspartate Aminotransferase 25 U/L (13-40); Bilirubin, Total 0.9 mg/dL (0.2-1.0); Cholesterol 181 mg/dL (< 200); LDL Cholesterol 132 mg/dL (< 100)
[2024-11-19 11:06] LABS: HDL Cholesterol 36 mg/dL (40-59)
== END | disposition home or self-care (01) ==
LOC: LAB 09:33
PROVIDERS: ATTEND Internal Medicine
DX: Z13.220 Encounter for screening for lipoid disorders (principal); Z13.1 Encounter for screening for diabetes mellitus; Z13.29 Encounter for screening for other suspected endocrine disorder; E66.01 Morbid (severe) obesity due to excess calories
CPT/HCPCS: 36415; 80053; 80061; 81001; 83036; 84153; 84443; 85025

== ENCOUNTER → 2024-12-24 | Outpatient (CLI) | payer OTHER ==
[2024-12-25 23:07] LABS: Chlamydia Trachomatis, NAA Negative (Negative); Neisseria gonorrhoeae, NAA Negative (Negative)
== END | disposition home or self-care (01) ==
LOC: LAB 10:41
PROVIDERS: ATTEND Internal Medicine
DX: N48.5 Ulcer of penis (principal)
CPT/HCPCS: 86703

== ENCOUNTER → 2025-01-01 | Outpatient (CLI) | payer OTHER | END | disposition home or self-care (01) | LOC: LAB 10:34 | PROVIDERS: ATTEND Urology | DX: R97.20 Elevated prostate specific antigen [PSA] (principal) | CPT/HCPCS: 84153 ==

== ENCOUNTER 2025-03-20 11:38 | Emergency (ER) | payer OTHER ==
[~2025-03-20] VITALS: Ht 170.2 cm; Wt 157.6 kg
[2025-03-20 11:58] VITALS: TEMP 98.4
--- NOTE | 2025-03-20 13:03 | ED.PDOC ---
Eye-HPI HPI Comments 54 y/o M, presents to the ED for CC of ear pain with mild dizziness that comes and goes. No aggravating factors. Patient states, that he has been experiencing right ear pain with associated left ear itchiness x1day. Patient denies hearing loss, recent swimming, or recent travel. No other symptoms or modifiers present at this time. Denies blunt trauma (hand blow to the ear, fall, direct hit) Denies penetrating trauma (Q-tip use, match-stick, gunshot wound, welding spark) Denies ear trauma Denies barotrauma Denies blast injury Denies air travel Denies scuba diving Denies hearing loss Denies persistent ringing in the ear Denies fever chills night sweats unintentional weight loss Denies nausea vomiting severe headache or recent vision changes Chief Complaint: Earache Time Seen by MD: 13:15 Reviewed Notes: Nurses Notes, Medications, Allergies Allergies: Coded Allergies: NO KNOWN ALLERGIES (Unverified , 07/29/24) Home Meds Active Scripts Fosfomycin Tromethamine (Fosfomycin Tromethamine) 3 Gm Pow, 3 GM PO ONCE for 1 Day, #1 POW Prov:SHERI ROBISON MD 08/08/24 Tamsulosin Hcl (Flomax) 0.4 Mg Cap, 0.8 MG PO DAILY for 30 Days, #60 CAP Prov:SHERI ROBISON MD 08/08/24 Finasteride (Finasteride) 5 Mg Tab, 5 MG PO DAILY for 30 Days, #30 TAB Prov:SHERI ROBISON MD 08/08/24 Information Source: Patient Mode of Arrival: Ambulatory Timing: Days Duration: Since onset Prehospital treatment: None Quality: Pain Lids: Normal Conjunctiva: Normal Cornea: Normal Pupils: Normal EOM: Normal Fundus: Normal Slit lamp exam: Normal Anterior chamber: Normal Mouth: Normal Nose: Normal Sinuses: Normal Oropharynx: Normal Onset: Spontaneous Throat Exposed to: None History of: None Last Tetanus: Unknown Associated signs and symptoms: Ear Pain Past Medical History PAST MEDICAL HISTORY: Denies Surgical History: Denies all surgeries Family History Family History: Reviewed,noncontributory to illness Social History Smoker: Non-Smoker Alcohol: Denies ETOH Use Drugs: Denies Drug Use Lives In: Home Constitutional: denies: chills, diaphoresis, fatigue, fever, malaise, sweats, weakness, others EENTM: reports: ear pain; denies: blurred vision, double vision, ear bleeding, ear discharge, ear drainage, ear ringing, eye pain, eye redness, hearing loss, mouth pain, mouth swelling, nasal discharge, nose bleeding, nose congestion, nose pain, photophobia, tearing, throat pain, throat swelling, voice changes, others Respiratory: denies: cough, hemoptysis, orthopnea, SOB at rest, shortness of breath, SOB with excertion, stridor, wheezing, others Cardiovascular: denies: chest pain, dizzy spells, diaphoresis, Dyspnea on exertion, edema, irregular heart beat, left arm pain, lightheadedness, palpitations, PND, syncope, others Gastrointestinal: denies: abdomen distended, abdominal pain, blood streaked bowels, constipated, diarrhea, dysphagia, difficulty swallowing, hematemesis, melena, nausea, poor appetite, poor fluid intake, rectal bleeding, rectal pain, vomiting, others Genitourinary: denies: burning, dysuria, flank pain, frequency, hematuria, incontinence, penile discharge, penile sore, pain, testicle pain, testicle swelling, urgency, others Neurological: denies: dizziness, fainting, headache, left sided numbness, left sided weakness, numbness, paresthesia, pre-existing deficit, right sided numbness, right sided weakness, seizure, speech problems, tingling, tremors, weakness, others Musculoskeletal: denies: back pain, gout, joint pain, joint swelling, muscle pain, muscle stiffness, neck pain, others Integumetry: denies: bruises, change in color, change in hair/nails, dryness, laceration, lesions, lumps, rash, wounds, others Allergic/Immunocompromised: denies: Difficulty Healing, Frequent Infections, Hives, Itching, others Hematologic/Lymphatic: denies: anemia, blood clots, easy bleeding, easy bruising, swollen glands, others Endocrine: denies: excessive hunger, excessive sweating, excessive thirst, excessive urination, flushing, intolerance to cold, intolerance to heat, unexplained weight gain, unexplained weight loss, others Psychiatric: denies: anxiety, bipolar disorder, depression, hopeless, panic disorder, schizophrenia, sleepless, suicidal, others All Other Systems: Reviewed and Negative Physical Exam General Appearance: No Apparent Distress, Normal HEENT: Normal ENT Inspection, Pharynx Normal, TM Abnormal (L) (erthematoues, TM intact, hearing intact bilateral, annia -), TM Abnormal (R) (erthematoues, TM intact, hearing intact bilateral, annia -, ), Other Neck: Full Range of Motion, Non-Tender, Normal, Normal Inspection Respiratory: Chest Non-Tender, Lungs Clear, No Accessory Muscle Use, No Respiratory Distress, Normal Breath Sounds Cardiovascular: No Edema, No Murmur, No Gallop, Normal Peripheral Pulses, Regular Rate/Rhythm Breast Exam: Deferred Gastrointestinal: No Organomegaly, Non Tender, No Pulsatile Mass, Normal Bowel Sounds, Soft Genitalia: Deferred Pelvic: Deferred Rectal: Deferred Extremities: No calf tenderness, Normal capillary refill, Normal inspection, Normal range of motion, Non-tender, No pedal edema Musculoskeletal : Apperance: Normal Neurologic: Alert, nursery teacher II-XII nml as Tested, No Motor Deficits, Normal Affect, Normal Mood, No Sensory Deficits Cerebellar Function: Normal Reflexes: Normal Skin: Dry, Normal Color, Warm Lymphatic: No Adenopathy Was a procedure done? Was a procedure done?: No EENT DIFF Eye: N/A Ear: Otitis Externa, Otitis Media Nose: N/A Mouth: N/A Sore Throat: N/A X-Ray, Labs, Meds, VS Vital Signs Date Time Temp Pulse Resp B/P (MAP) Pulse Ox O2 Delivery O2 Flow Rate FiO2 03/20/25 11:58 98.4 86 20 136/78 (97) 95 98.4 X-Ray, Labs, Meds, VS Comment 54 y/o M, presents to the ED for CC of ear pain. Patient arrives alert and oriented, ABC's intact, afebrile, vital signs stable, saturating well in room air After ROS physical examination no red flags Neuro exam reassuring. Treat associated vertigo symptomatically. Patient is stable for discharge at this time. All diagnostic findings, discharge care, education and instructions provided Follow-up with PCP in 2 to 3 days Patient verbalized understanding and agreed to treatment plan Vital signs stable, afebrile, no acute distress noted Patient ambulatory with strong steady gait Advised to return precautions for any new or worsening symptoms, return to ER immediately for re-evaluation Patient is aware that the purpose of this visit was for an acute medical emergency requiring emergent stabilization. Chronic conditions, including malignancies have not been ruled out. Patient is instructed to follow up with PCP as directed and discharge instructions for continued care and workup. If unable to arrange follow-up, patient is to return to the emergency department for reassessment. Patient (parent or legal guardian if applicable) was given verbal and written discharge instructions and acknowledges understanding. We will treat symptomatically with meclizine for vertigo. Based on show decision-making patient agreed to empiric treatment with a course of Augmentin. Additional MDM Review of External, Non-ED records: External records reviewed. Discussion with independent historian (EMS, family) history obtained from the patient/parents (if applicable) at bedside Chronic conditions affecting care: None Social determinants of health affecting care: None Consideration of admission (observation or admission): I considered escalation of care to admission for this patient, however given the reassuring workup, the patient is safe for outpatient management. Discussion with the Radiology: No Tests considered but not performed: Prescription medication considered but not given: Time of 1ST Reevaluation: 13:45 Reevaluation 1ST: Unchanged Time of 2ND Reevaluation: 13:20 Reevaluation 2ND: Improved Patient Education/Counseling: Diagnosis, Treatment Family Education/Counseling: No Family Present SEPSIS Sepsis Screen Date sepsis recognized/suspect: Mar 20, 2025 Time Sepsis recognized/suspect: 1159 Recent Procedure: No On Antibiotic Therapy: No Respiratory Rate >20: No Heart Rate >90: No Temp<36 C (96.8 F) or >38.3 C: No SBP <90 or MAP <65 mmHG: No New Acute Mental Status Change: No Is the patient on CPAP, BIPAP,: No Vital Signs Date Time Temp Pulse Resp B/P (MAP) Pulse Ox O2 Delivery O2 Flow Rate FiO2 03/20/25 11:58 98.4 86 20 136/78 (97) 95 98.4 Departure 1 Departure Time of Disposition: 13:22 Impression: Primary Impression: Vestibular neuritis Qualified Codes: H81.21 - Vestibular neuronitis, right ear Additional Impression: Tinnitus Qualified Codes: H93.12 - Tinnitus, left ear Disposition: HOME / SELF CARE / HOMELESS Condition: Stable e-Prescriptions Amoxicillin & Pot Clavulanate (AUGMENTIN TABLET) 875 Mg Tb 875 MG PO BID for 7 Days, #14 TAB 0 Refills Prov: ANNAMARIA [employer]ERGMAN [employer] 03/20/25 Meclizine Hcl (Meclizine Hcl) 12.5 Mg Tab 1 TAB PO TID for 14 Days, #42 TAB 0 Refills Prov: ANNAMARIA [employer] 03/20/25 Discharged With: Self Critical Care Note Critical Care Time?: No Stability Stability form required: No Heart Score Heart Score: Heart Score Response (Comments) Value History N/A 0 EKG N/A 0 Age N/A 0 Risk Factors N/A 0 Troponin N/A 0 Total 0 I personally scribed for NANAMARIA BERGMAN [employer] ([email or web address]) on 03/20/25 at 13:03. Electronically submitted by Kelli Mustafa ([email or web address]). I personally scribed for ANNAMARIA [employer] ([email or web address]) on 03/20/25 at 13:10. Electronically submitted by Kelli Mustafa ([email or web address]). I personally scribed for ANNAMARIA [employer] ([email or web address]) on 03/20/25 at 13:15. Electronically submitted by Kelli Mustafa ([email or web address]). ANNAMARIA [employer] Mar 20, 2025 13:03
[2025-03-20] MEDS ORDERED: MECL12.586 PO (13:23)
[2025-03-20] MEDS ORDERED: AUG875T PO (13:23)
[2025-03-20 13:33] VITALS: BP 136/78; PULSE 86; RESP 20; O2SAT 95
== END 2025-03-20 13:36 | disposition home or self-care (01) ==
LOC: ER 11:38
DX: H81.21 Vestibular neuronitis, right ear (principal); H93.12 Tinnitus, left ear; Z79.899 Other long term (current) drug therapy

== ENCOUNTER → 2025-07-23 | Outpatient (CLI) | payer OTHER ==
[~2025-07-23] MED LIST changes: +AUG875T PO; +MECL12.586 PO
[2025-07-23 10:54] LABS: Hematocrit 49.7 % (41.0-53.0); Hemoglobin 17.0 g/dL (13.5-17.5); Mean Corpuscular Hemoglobin 31.5 pg (28.0-32.0); Mean Corpuscular Volume 91.9 fL (80.0-100.0); Nucleated Red Blood Cells % 0.3 %
[2025-07-23 11:08] LABS: Urine Protein, UAD Negative (Negative)
[2025-07-23 11:15] LABS: Albumin 4.3 g/dL (3.2-4.8); Alkaline Phosphatase 71 U/L (46-116); Anion Gap 9 (5-15); BUN/Creatinine Ratio 16.4 (10.0-20.0); Blood Urea Nitrogen 12 mg/dL (9-23); Calcium 9.1 mg/dL (8.7-10.4); Carbon Dioxide 25 mmol/L (20-31); Chloride 106 mmol/L (98-107); Glucose 100 mg/dL (74-106); Potassium 4.0 mmol/L (3.5-5.1); Sodium 140 mmol/L (136-145); Total Protein 7.1 g/dL (5.7-8.2); Triglycerides 126 mg/dL (< 150)
[2025-07-23 11:16] LABS: Alanine Aminotransferase 44 U/L (7-40); Bilirubin, Total 0.8 mg/dL (0.2-1.0); Cholesterol 195 mg/dL (< 200); HDL Cholesterol 41 mg/dL (40-59)
== END | disposition home or self-care (01) ==
LOC: LAB 10:02
PROVIDERS: ATTEND Internal Medicine
DX: E78.2 Mixed hyperlipidemia (principal); E66.01 Morbid (severe) obesity due to excess calories; Z12.11 Encounter for screening for malignant neoplasm of colon; Z13.1 Encounter for screening for diabetes mellitus; Z00.01 Encounter for general adult medical examination with abnormal findings
CPT/HCPCS: 36415; 80053; 80061; 81001; 82274; 83036; 84439; 84443; 85025; 86803